=== PATIENT | male | born 1940 | race Caucasian/White ===

== ENCOUNTER 2019-10-30 12:36 | Emergency (ER) | payer OTHER, SELFPAY ==
[2019-10-30 12:46] VITALS: BP 154/97; RESP 18; TEMP 36.6; O2SAT 98; BMI 31.7
[2019-10-30 14:44] VITALS: BP 159/84
--- NOTE | 2019-10-30 14:45 | PC.NURSE ---
Patient reports that today he was setting watching TV when he checked is blood pressure. Patient states that his blood pressure was 94/64 at home.
[2019-10-30 14:47] VITALS: BP 153/101; PULSE 87; RESP 18; O2SAT 95
[2019-10-30 14:48] VITALS: BP 152/92; PULSE 90; O2SAT 93
--- NOTE | 2019-10-30 15:07 | XR_ITS ---
WS: [id number] Portable AP upright chest, 10/30/2019 Clinical Data: cough Comparison: Portable chest, 01/03/2018. Findings: No nodules, masses or effusions are seen. The heart is normal. The pulmonary vascularity is not increased. No pneumonia or pneumothorax is seen. There is minimal bibasilar basilar atelectasis unchanged. The aortic arch and descending aorta show mild tortuosity XR/XR chest 1V portable [id number] Impression: Atherosclerosis.
--- NOTE | 2019-10-30 15:07 | ECG_ITS ---
Measurements Intervals [place] Rate: 80 P: [place]: 0 QRS: 59 QRSD: 114 T: 42 QT: 372 QTc: 430 ATRIAL FIBRILLATION MODERATE INTRAVENTRICULAR CONDUCTION DELAY [110+ ms QRS DURATION] ABNORMAL RHYTHM ECG Compared to ECG 01/05/2018 05:55:14 Intraventricular conduction delay now present Myocardial infarct finding no longer present Electronically Signed On 10-30-2019 19:28:30 SERVICE [employer]ORTER by Jose Jc M.D. [email or web address]
--- NOTE | 2019-10-30 15:26 | W.ED.GENADLT ---
HPI - General Adult General: Chief complaint: General Medical Stated complaint: low bp Time Seen by Provider: 10/30/19 14:55 Source: patient Mode of arrival: ambulatory Limitations: no limitations History of Present Illness: HPI narrative: Patient comes in today for complaints of low blood pressure. Patient reports 2 episodes of where his blood pressure dropped very low once last night and then 1 time this morning. Patient states he got dizzy last night and felt like passing out. Patient denies any falls or injury. Patient appears well and blood pressure has returned to normal. Skin is warm and dry. Patient appears in no pain. Patient denies any chest pain. Review of Systems General: Reports: 10 or more systems reviewed and unremarkable except in HPI and below Neuro: Reports: other (lightheadedness) PFSH ED PFSH: Statuses (acute, chronic, etc) shown below reflect problem list status as previously entered and may not be historically accurate Social History Smoking and tobacco status: former smoker Physical Exam Const: COMMON NORMALS: no apparent distress and oriented x3 GENERAL APPEARANCE: cooperative HENMT: COMMON NORMALS: normocephalic, external ears normal, EAC's normal, TM's normal bilaterally and external nose normal HEAD & SCALP: normal to inspection and normocephalic FACE & SINUS: normal facial exam NOSE: external nose normal GENERAL EAR: hearing not grossly impaired EXTERNAL EAR: Yes external ears normal EXTERNAL AUDITORY CANAL: EAC's normal TYMPANIC MEMBRANE: TM's normal bilaterally MOUTH: oral and palatal mucosa normal THROAT: posterior oropharynx normal Eye: COMMON NORMALS: PERRL and EOMs intact bilaterally PUPIL: Yes PERRL Neck/C-Spine: COMMON NORMALS: full ROM and no lymphadenopathy Lymph: LYMPHATIC: no lymphedema noted Chest: COMMONS NORMALS: inspection of chest normal and palpation of chest normal Resp: COMMON NORMALS: normal respiratory effort AUSCULTATION: wheezes expiratory wheezes Cardio: COMMON NORMALS: regular rate and regular rhythm RATE: regular rate RHYTHM: regular rhythm GI: COMMON NORMALS: normal to inspection, nondistended, normoactive bowel sounds and non-tender : COMMON NORMALS: Yes no CVA tenderness BLADDER/KIDNEY EXAM: Yes no CVA tenderness Back/Pelvis: COMMON NORMALS: no CVA tenderness and thoracic and lumbar spine normal to inspection Extremity: COMMON NORMALS: normal to inspection GENERAL: No edema Neuro: COMMON NORMALS: oriented x3, moves all extremities and no focal motor deficits Psych: COMMON NORMALS: mental status grossly normal and cooperative Skin: COMMON NORMALS: no rashes or lesions noted GENERAL SKIN EXAM: no rashes or lesions noted Course Vital Signs: Vital signs: Vital Signs Temperature 98 F 10/30/19 12:46 Pulse Rate 90 10/30/19 14:48 Respiratory Rate 18 10/30/19 14:47 Blood Pressure 152/92 10/30/19 14:48 Pulse Oximetry 93 10/30/19 14:48 MDM - General Adult MDM Narrative: Medical decision making narrative: Patient comes in today for concerns of lightheadedness. Exam was fairly normal except for some expiratory wheezes. Patient reported that he had been coughing for about 2 to 3 weeks. Vital signs were stable. Orthostatic blood pressures were normal. Differential diagnosis includes ACS, pneumonia, vasovagal syndrome, dehydration, anemia. Laboratory values were insignificant. Chest x-ray was normal. EKG was atrial fib which is normal for patient. Cardiac enzymes normal. Reviewed exam with patient suspect a vasovagal response may be due to coughing. Patient will be treated for doxycycline for his persistent cough and 3 days of steroid. Patient reported understanding agreed to plan. I did offered a CT scan of the head with the patient but patient refused at this time wanting to go home, and stated he would follow-up with his primary care. Lab Data: Labs: Lab Results 10/30/19 10/30/19 10/30/19 Range/Units 15:28 15:28 15:28 WBC 6.5 (4.0-10.0) 10^3/ uL RBC 4.67 (4.1-5.3) 10^6/u L Hgb 12.7 (11.7-16.6) g/dL Hct 40.7 L (42.0-52.0) % MCV 87.2 (80-94) fL MCH 27.2 L (28.0-34.0) pg MCHC 31.2 (30.0-36.0) g/dL RDW 14.6 (12.1-15.1) % Plt Count 150 (130-400) 10^3/c mm MPV 11.2 H (7.4-10.4) fL Neut % (Auto) 50.1 % Lymph % (Auto) 34.4 % [place] % (Auto) 10.9 % Eos % (Auto) 4.0 % Baso % (Auto) 0.3 % Neut # (Auto) 3.3 (1.8-7.7) 10^3/u L Lymph # (Auto) 2.3 (0.8-4.8) 10^3/u L [place] # (Auto) 0.7 (0.2-0.9) 10^3/u L Eos # (Auto) 0.3 (0.0-0.8) 10^3/u L Baso # (Auto) 0.0 (0.0-0.1) 10^3/u L Nucleated RBC % (a uto) 0 % Nucleated RBCs # 0.0 /100WBC Sodium 138 (136-145) mmol/L Potassium 4.3 (3.5-5.1) mmol/L Chloride 101 (98-107) mmol/L Carbon Dioxide 27 (22-29) mmol/L Anion Gap 14.3 (5-19) BUN 11 (8-23) mg/dL Creatinine 1.0 (0.7-1.2) mg/dL Glucose 114 H (74-106) mg/dL Calcium 10.1 (8.8-10.2) mg/Dl Total Bilirubin 0.8 (0.15-1.2) mg/dL AST 20 (0-40) U/L ALT 13 (0-41) U/L Alkaline Phosphata se 64 (40-130) IU/L Troponin T Baselin e 10 (0-15) ng/mL NT-Pro-B Natriuret Pep 184 (0-450) pg/mL Total Protein 7.1 (6.6-8.7) g/dL Albumin 4.2 (3.5-5.2) g/dL Globulin 2.9 (1.3-4.6) g/dL Discharge Plan Discharge Patient Disposition: Home, Self-Care Clinical Impression: Vaso-vagal reaction Acute bronchitis Qualifiers: Bronchitis organism: unspecified organism Qualified Code(s): J20.9 - Acute bronchitis, unspecified Condition: Stable Prescriptions: New doxycycline hyclate 100 mg tablet 100 mg PO BID 10 Days Qty: 20 RF: 0 prednisone 20 mg tablet 20 mg PO DAILY 3 Days Qty: 3 RF: 0 Discharge Orders: Discharge Order (Routine); Ordered 10/30/19 Ordered By: Andres Resendiz Discharge Diet: Usual diet Discharge Activity: Resume usual activity Patient Instructions: Syncope (ED) Activity Restrictions/Additional Instructions: Drink plenty of water Change position slowly Follow-up with primary care in three days REturn to ER for chest pain or increased shortness of breath Coding Level of Care Code ED [place] [employer] for Josh Pinto
[2019-10-30 15:34] LABS: Basophils % 0.3 %; Eosinophils # 0.3 10^3/uL (0.0-0.8); Hematocrit 40.7 % (42.0-52.0); Hemoglobin 12.7 g/dL (11.7-16.6); Lymphocytes # 2.3 10^3/uL (0.8-4.8); Lymphocytes % 34.4 %; Mean Corpuscular HGB Conc 31.2 g/dL (30.0-36.0); Mean Corpuscular Hemoglobin 27.2 pg (28.0-34.0); Mean Corpuscular Volume 87.2 fL (80-94); Mean Platelet Volume 11.2 fL (7.4-10.4); Monocytes # 0.7 10^3/uL (0.2-0.9); Monocytes % 10.9 %; Neutrophils # 3.3 10^3/uL (1.8-7.7); Neutrophils % 50.1 %; Nucleated Red Blood Cells % 0 %; Platelet Count 150 10^3/cmm (130-400); Red Blood Count 4.67 10^6/uL (4.1-5.3); Red Cell Distribution Width 14.6 % (12.1-15.1); White Blood Count 6.5 10^3/uL (4.0-10.0)
[2019-10-30 15:51] LABS: Troponin(5th) Baseline 10 ng/mL (0-15)
[2019-10-30 15:59] LABS: Alanine Aminotransferase 13 U/L (0-41); Albumin Level 4.2 g/dL (3.5-5.2); Alkaline Phosphatase 64 IU/L (40-130); Anion Gap 14.3 (5-19); Aspartate Amino Transferase 20 U/L (0-40); Blood Urea Nitrogen 11 mg/dL (8-23); Calcium 10.1 mg/Dl (8.8-10.2); Carbon Dioxide 27 mmol/L (22-29); Chloride 101 mmol/L (98-107); Globulin 2.9 g/dL (1.3-4.6); Glucose 114 mg/dL (74-106); NT Pro B Type Natriuretic Pept 184 pg/mL (0-450); Potassium 4.3 mmol/L (3.5-5.1); Sodium 138 mmol/L (136-145); Total Bilirubin 0.8 mg/dL (0.15-1.2); Total Protein 7.1 g/dL (6.6-8.7)
[2019-10-30 17:05] VITALS: BP 138/100; PULSE 97; RESP 18; O2SAT 95
== END 2019-10-30 17:06 | disposition home or self-care (01) ==
PROVIDERS: Emergency Provider Nurse Practitioner Family
DX: R55 Syncope and collapse (principal); J20.9 Acute bronchitis, unspecified; Z87.891 Personal history of nicotine dependence; I48.91 Unspecified atrial fibrillation
CPT/HCPCS: 36415; 71045; 80053; 83880; 84484; 85025; 93005; 99281

== ENCOUNTER 2020-05-08 10:15 | Emergency (ER) | payer OTHER, MEDICARE, SELFPAY ==
[2020-05-08 10:33] VITALS: BP 148/87; PULSE 100; RESP 20; TEMP 36.6; O2SAT 95; BMI 31.2
[2020-05-08 12:05] VITALS: RESP 18
--- NOTE | 2020-05-08 12:22 | ED_ITS ---
HPI - Extremity Problem General: Chief complaint: Extremity Problem,Nontraumatic Stated complaint: LUMP ON R LEG Time Seen by Provider: 05/08/20 11:53 Source: patient Mode of arrival: ambulatory Limitations: no limitations History of Present Illness: HPI Narrative: Patient is a 79-year-old male who presents to ED today at the request of the [facility] for complaints of a lump to his ri ght lower extremity. [facility]. Patient tells me he has noticed the lump over the past few days. Seems to be mildly tender with palpation. He has not noticed any redness, swelling, pain throughout the extremity. He has no calf pain. MD Complaint: other ( lump to R LE) Onset (ago): day(s) Location: right and lower extremity Radiation: none Relieving factors: nothing Exacerbating factors: nothing Associated symptoms: Reports no associated symptoms; Deny chest pain or fever(s) Review of Systems Const: Denies: fever(s), chills or body aches Card: Denies: chest pain Resp: Denies: dyspnea or chest congestion Musc: Reports: other (mild pain directly over lump ); Denies: neck pain, back pain, extremity pain, extremity swelling, joint pain or joint swelling Neuro: Denies: numbness in extremities, weakness in extremities or sensory changes [facility] ED PFSH: Social History Smoking and tobacco status: former smoker Physical Exam Const: COMMON NORMALS: no acute distress, patient oriented x3, no limitations and alert Resp: COMMON NORMALS: normal respiratory effort and clear to auscultation bilaterally AUSCULTATION: clear to auscultation bilaterally Cardio: COMMON NORMALS: regular rate and regular rhythm RATE: regular rate RHYTHM: regular rhythm Extremity: COMMON NORMALS: normal to inspection, full ROM, capillary refill normal, no calf tenderness and no pedal edema GENERAL: Yes normal exam except as noted OTHER: Patient's bilateral lower extremities appear normal apart from a small 2 cm area to the medial aspect of patient's right tibia. The area is not erythematous or warm to the touch. It does not appear cord like. It is not freely mobile. There is no fluctuance or drainage to the area. Neuro: COMMON NORMALS: patient oriented x3, moves all extremities, no focal motor deficits and gait normal SENSORIUM/ORIENTATION: Yes alert Skin: NARRATIVE SKIN EXAM: see extremity assessment Course Vital Signs: Vital signs: Vital Signs Temperature 97.9 F 05/08/20 10:33 Pulse Rate 83 05/08/20 13:27 Respiratory Rate 20 H 05/08/20 13:27 Blood Pressure 142/88 05/08/20 13:27 Pulse Oximetry 97 05/08/20 13:27 MDM - Extremity (Nontraumatic) MDM Narrative: Medical decision making narrative: Ultrasound showing no DVT. Questionable sebaceous cyst versus superficial thrombophlebitis. Clinically this does not appear as a superficial thrombus and most likely this is some type of cystic lesion. [facility] for [facility]. Imaging Data^: US venous R LE: Radiologist's impression: [place] [address] Ultrasound Report Signed Patient: Bjorn LongUnit #: [id number] : 1940cct#:[id number] Age/Sex: 79 / MADM Date: 05/08/20 Loc: ERRoom/Bed: Attending Dr: Ordering Provider/Ordering MD: Crys Maldonado Date of Service: 05/08/20 Procedure(s): [place] [address] Accession Number(s): [id number] Report Number: [id number] Bjorn Long Age: 79 Gender: M : 1940 Exam Date: 05/08/2020 12:33 Ordering Phys: Crys Maldonado Technologist: Adeline Holman Exam Location: [facility] [place] Indication: RLE pain, swelling HISTORY: RLE pain, swelling PROCEDURES: On the right side, the common femoral, superficial femoral, profunda femoral, popliteal, posterior tibial, greater saphenous veins and the peroneal trunk were identified and interrogated in the standard fashion. These veins were found to be easily compressible with spontaneous blood flow. FINDINGS: Normal 2-D Doppler and augmentation and compressibility throughout the lower extremity venous structures. Additional imaging through the proximal calf veins also reveals no thrombus. Limited evaluation of the greater saphenous vein is patent with no thrombus. Palpable area anterior lower extremity near ankle maybe a small sebaceous cyst or thrombosed superficial vein. CONCLUSIONS No DVT right lower extremity. Palpable nodule anterior lower tibia maybe a sebaceous cyst or thrombosed superficial vein. Dr. Yen Cox DO (Electronically Signed) Final Date: 08 May 2020 15:00 S Discharge Plan Discharge Patient Disposition: Home, Self-Care Clinical Impression: Localized swelling, mass and lump, right lower limb Condition: Stable Discharge Orders: Discharge Order (Routine); Ordered 05/08/20 Ordered By: Crys Maldonado Activity Restrictions/Additional Instructions: [facility]2 [facility] for further evaluation. Your ultrasound was negative for a blood clot/DVT today. Discharge Date/Time: 05/08/20 13:27 Coding Level of Care Code ED Compliance Officer for Josh Pinto
[2020-05-08 13:27] VITALS: BP 142/88; PULSE 83; RESP 20; O2SAT 97
== END 2020-05-08 13:27 | disposition home or self-care (01) ==
PROVIDERS: Emergency Provider Physician Assistant
DX: R22.41 Localized swelling, mass and lump, right lower limb (principal); M79.89 Other specified soft tissue disorders; Z87.891 Personal history of nicotine dependence
CPT/HCPCS: 12345; 93971; 99282

== ENCOUNTER 2020-05-16 09:45 | Outpatient (RCR) | payer OTHER, MEDICARE, SELFPAY | END 2020-05-17 23:59 | disposition home or self-care (01) | LOC: PULRHB 09:45 | PROVIDERS: PCP Internal Medicine Pulmonary Disease; Visit Provider Internal Medicine Pulmonary Disease | DX: J44.9 Chronic obstructive pulmonary disease, unspecified (principal) | CPT/HCPCS: G0238 ==

== ENCOUNTER 2020-05-18 06:00 | Outpatient (RCR) | payer OTHER, MEDICARE, SELFPAY | END 2020-06-17 23:59 | disposition home or self-care (01) | LOC: PULRHB 06:00 | PROVIDERS: PCP Internal Medicine Pulmonary Disease; Visit Provider Internal Medicine Pulmonary Disease | DX: J44.9 Chronic obstructive pulmonary disease, unspecified (principal) | CPT/HCPCS: G0424 ==

== ENCOUNTER 2020-06-12 06:34 | Day surgery (SDC) | payer OTHER, SELFPAY ==
[2020-06-10 13:10] VITALS: BMI 30.2
--- NOTE | 2020-06-10 13:13 | ECG_ITS ---
[facility] Test Date: 2020-06-10 Pat Name: Bjorn Long Department: Room: Gender: Male Dispatcher [place]: : 1940 Requested By: Henry Gudino Order Number: [id number] Billie MD: Sj Mcclain M.D. Measurements Intervals [place] Rate: 86 P: MT: -1 QRS: 67 QRSD: 111 T: 44 QT: 357 QTc: 428 Interpretive Statements ATRIAL FIBRILLATION MODERATE INTRAVENTRICULAR CONDUCTION DELAY [110+ ms QRS DURATION] ABNORMAL RHYTHM ECG Compared to ECG 10/30/2019 15:26:13 No significant changes Electronically Signed On 06-11-2020 17:28:52 CDT by Sj Mcclain M.D. [email or web address]
[2020-06-12 06:44] VITALS: BP 150/103; PULSE 85; RESP 18; TEMP 36.4; O2SAT 97
[2020-06-12] MEDS: sodium chloride 0.9% 1,000 ML 30 ML IV (06:56)
--- NOTE | 2020-06-12 07:09 | W.PM.OPSUD ---
Surgery/Procedure H&P Update DATE OF PROCEDURE: June 12, 2020 DATE H&P PERFORMED: 05/30/20 H&P UPDATE INFORMATION: I have reviewed H&P completed within last 30 days, I have examined patient prior to procedure and No changes to prior documentation PREOP DIAGNOSIS: Subcutaneous mass right leg PLANNED PROCEDURE: Operation Date: 06/12/20 08:10 Proposed Procedures p Excision subcutaneous mass right leg 80946 R22.41(Right) - Jericho Boyd MD
--- NOTE | 2020-06-12 07:16 | ANES.PREANE2 ---
Pre-Anesthetic Assessment Pre-Anesthetic Assessment: Height/Weight: Height 1.91 m Weight 109.769 kg Temp Pulse Resp BP Pulse Ox 97.5 F L 85 18 150/103 97 06/12/20 06:44 06/12/20 06:44 06/12/20 06:44 06/12/20 06:44 06/12/20 06:44 Preop Diagnosis: Subcutaneous mass right leg Proposed Procedure: Operation Date: 06/12/20 08:10 Proposed Procedures p Excision subcutaneous mass right leg 41327 R22.41(Right) - Jericho Boyd MD Familial anesthetic complications: None Was Beta Deanne taken within 24 hours: Yes Last intake: Intake Last Liquid Date 06/11/20 Last Liquid Time 23:00 Last Solid Date 06/11/20 Last Solid Time 19:00 Social: Social History: No alcohol and No tobacco Exam: Pre-Anes Outpt Exam: alert, oriented x 3, clear to auscultation bilaterally and regular rate & rhythm Additional Exam Findings (including area of procedure): diminished breath sounds Airway: Cervical ROM: WNL MP: 2 Dentition: False Pulmonary: Pulmonary: COPD CV/HEM: CV/HEM: Afib and HTN Comments: last took rivaroxaban wednesday GI: GI: GERD Musc/skel: Musc/skel: None reported Neuropsych: 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)) Anesthetic Plan: ASA status: 3 Anesthesia: MAC Risk of > 500 ml blood loss (7ml/kg in children): No Meds/Allergies Current Medications: Current Medications Generic Name Dose Route Start Last Admin Trade Name Freq PRN Reason Stop Dose Admin Sodium Chloride 1,000 mls @ 30 ml s/hr 06/12/20 06:45 06/12/20 06:56 Sodium Chloride 0.9% IV 06/13/20 06:44 30 mls/hr .Q24H BANDAR Administration PFSH Anesthesia PFSH: Medical History (Updated 05/31/20 @ 12:39 by Jericho Boyd MD) Atrial fibrillation COPD (chronic obstructive pulmonary disease) H/O malignant neoplasm of skin Hypertension Surgical History H/O circumcision H/O colonoscopy 5 yrs ago H/O esophagogastroduodenoscopy 1993 Family History Other CAD (coronary artery disease) Diabetes Denies family history of Anesthesia complication Bleeding disorder Cancer Social History Smoking and tobacco status: former smoker Alcohol intake: never Household members: spouse Marital status: Current occupational status: retired History of recent travel: No Data Anesthesia Cardiac Studies: No Data to Display
[2020-06-12] MEDS: lidocaine 1% INJ 20 mL SUBCUT (08:51)
[2020-06-12 09:17] VITALS: BP 110/69; PULSE 71; RESP 16; TEMP 36.8; O2SAT 93
[2020-06-12 09:40] VITALS: BP 123/85; PULSE 83; RESP 18; TEMP 36.6; O2SAT 94
--- NOTE | 2020-06-12 11:48 | PM.OP ---
Operative Report Date of procedure: June 12, 2020 Pre-op Diagnosis: Subcutaneous mass right leg Post-op diagnosis: same Procedure Done: Excision of subcutaneous mass right leg Pathology: Subcutaneous mass right leg Surgeon: Jericho Boyd Anesthesia: MAC and General Condition: stable Disposition: same day Procedure: The patient was taken to the operating room and placed under MAC after IV antibiotic had been administered. 1% lidocaine with 0.5% Marcaine was infiltrated around the palpable mass on the medial aspect of the right leg. Using 15 blade a 3 cm incision was made longitudinally, subcutaneous tissue was divided and the subcutaneous mass was dissected free from the surrounding subcutaneous tissue and sent to pathology. It appeared that the mass is most likely a thrombosed greater saphenous vein and the remaining portion of the vein was suture ligated with 3-0 Vicryl suture. The subcutaneous tissues approximated using interrupted 3-0 Vicryl suture and skin was closed using running subcuticular 4-0 Monocryl suture and Dermabond. Pressure dressings were applied. Patient was transferred to same-day surgery in stable condition.
== END 2020-06-12 10:06 | disposition home or self-care (01) ==
PROVIDERS: PCP Emergency Medicine Emergency Medical Services; Visit Provider Surgery
PROC: (CPT 27632; principal; 2020-06-12 08:10)
DX: D17.23 Benign lipomatous neoplasm of skin and subcutaneous tissue of right leg (principal); J44.9 Chronic obstructive pulmonary disease, unspecified; I10 Essential (primary) hypertension; I48.91 Unspecified atrial fibrillation; K21.9 Gastro-esophageal reflux disease without esophagitis; Z86.73 Personal history of transient ischemic attack (TIA), and cerebral infarction without residual deficits; Z79.01 Long term (current) use of anticoagulants; Z87.891 Personal history of nicotine dependence
CPT/HCPCS: 27632; 12345; 88309; 93005; 96365; J0690; J2704; J3010; J3490; J7030

== ENCOUNTER 2020-06-18 06:00 | Outpatient (RCR) | payer OTHER, SELFPAY | END 2020-07-17 23:59 | disposition home or self-care (01) | LOC: PULRHB 06:00 | PROVIDERS: PCP Emergency Medicine Emergency Medical Services; Visit Provider Internal Medicine Pulmonary Disease | DX: J44.9 Chronic obstructive pulmonary disease, unspecified (principal) | CPT/HCPCS: G0424 ==

== ENCOUNTER 2020-07-04 04:38 | Inpatient (IN) | payer OTHER, MEDICARE, SELFPAY ==
[2020-07-04] VITALS (14 sets, daily range): BP systolic 92–147; BP diastolic 49–76; PULSE 66–107; RESP 16–26; TEMP 36.6–39.2; O2SAT 91–98; BMI 30.6
--- NOTE | 2020-07-04 04:42 | XRR_ITS ---
PROCEDURE INFORMATION: Exam: XR Chest, 1 View Exam date and time: 07/04/2020 5:10 AM Age: 79 years old Clinical indication: Cough TECHNIQUE: Imaging protocol: XR of the chest Views: 1 view. COMPARISON: CR XR chest 1V portable [id number] 10/30/2019 3:35 PM FINDINGS: Lungs: Scattered granulomatous calcifications. Areas of pleuroparenchymal scarring. Mildly accentuated lingular opacity which could reflect small infiltrate or atelectasis. Pleural space: Unremarkable. No pleural effusion. No pneumothorax. Heart/Mediastinum: Stable heart size. Vasculature: Tortuous thoracic aorta. Bones/joints: Unremarkable. XR/XR chest 1V portable [id number] IMPRESSION: Lingular atelectasis or small infiltrate is somewhat accentuated since the prior chest.
--- NOTE | 2020-07-04 04:42 | XRR_ITS ---
PROCEDURE INFORMATION: Exam: XR Right Tibia and Fibula Exam date and time: 07/04/2020 5:13 AM Age: 79 years old Clinical indication: Cellulitis; Lower leg; Right; Prior surgery; Surgery date: <1 month; Surgery type: Leg ret swollen, open wound, cyst removed from leg 3 weeks ago TECHNIQUE: Imaging protocol: XR Right tibia and fibula. Views: 2 views. COMPARISON: No relevant prior studies available. FINDINGS: Bones/joints: Normal. Soft tissues: Soft tissue vascular calcification. Fullness or edema of the soft tissues cranial to the ankle joint medially. XR/XR tibia fibula RT 2V [id number] IMPRESSION: No acute osseous findings.
--- NOTE | 2020-07-04 04:44 | ED_ITS ---
Documented by User: Chloe Messer MD 07/04/20 05:02 HPI - Skin/Abscess/Foreign Bdy General: Chief complaint: Extremity Injury, Lower Stated complaint: right leg pain Time Seen by Provider: 07/04/20 04:42 Source: patient and EMS Mode of arrival: EMS Limitations: no limitations History of Present Illness: HPI narrative: 79-year-old male who was seen 1 month ago for an abscess or cyst to his right lower leg that Dr. Boyd and drained. Patient was released from Dr. Boyd. He states that over the last 24 hours he started having redness along with pain and fever. Patient states he has a chronic cough. He denies any acute shortness of breath. He denies any worsening improving factors. Associated symptoms: Reports fever(s); Deny nausea or vomiting Review of Systems Const: Reports: fever(s) Eyes: Denies: blurry vision or eye discomfort ENMT: Denies: throat pain or dental pain Card: Denies: chest pain Resp: Denies: dyspnea GI: Denies: abdominal pain, nausea, vomiting or diarrhea : Denies: dysuria Musc: Denies: neck pain or back pain Skin/Breast: Reports: rash and erythema Neuro: Denies: headache(s) Psych: Denies: depression All/Lymph: Denies: easy bruising All/Imm: Denies: urticaria PFSH ED PFSH: Medical History Atrial fibrillation COPD (chronic obstructive pulmonary disease) H/O malignant neoplasm of skin Hypertension Surgical History H/O circumcision H/O colonoscopy 5 yrs ago H/O esophagogastroduodenoscopy 1993 Hx of excision of mass (06/12/20) Right leg Family History Other CAD (coronary artery disease) Diabetes Denies family history of Anesthesia complication Bleeding disorder Cancer Social History Smoking and tobacco status: former smoker Alcohol intake: never Household members: spouse Marital status: Current occupational status: retired History of recent travel: No Physical Exam Const: COMMON NORMALS: no acute distress, patient oriented x3 and healthy appearing HENMT: COMMON NORMALS: normocephalic and atraumatic HEAD & SCALP: normocephalic and atraumatic Eye: COMMON NORMALS: Equal, round and reactive pupils present and EOMs intact bilaterally PUPIL: Yes Equal, round and reactive pupils present Neck/C-Spine: COMMON NORMALS: full ROM and supple Chest: COMMONS NORMALS: normal inspection of the chest and normal palpation of entire chest wall Resp: COMMON NORMALS: normal respiratory effort, No retractions, No use of accessory muscles and clear to auscultation bilaterally AUSCULTATION: clear to auscultation bilaterally Cardio: COMMON NORMALS: regular rate, regular rhythm and No murmurs present (Cardio) RATE: regular rate RHYTHM: regular rhythm GI: COMMON NORMALS: Normal to inspection, nondistended, normoactive bowel sounds present, Soft to palpation, non-tender and no masses PALPATION: Yes Soft to palpation Extremity: COMMON NORMALS: normal to inspection and full ROM Neuro: COMMON NORMALS: patient oriented x3, moves all extremities and no focal motor deficits Psych: COMMON NORMALS: mental status grossly normal, Normal thought process present and cooperative THOUGHT PROCESS: Normal thought process present Skin: NARRATIVE SKIN EXAM: Cellulitis to right lower leg with erythema and warmth to touch. Slight drainage from old cyst. Course Vital Signs: Vital signs: Vital Signs Temperature 97.9 F 07/04/20 04:39 Pulse Rate 87 07/04/20 05:44 Respiratory Rate 16 07/04/20 05:44 Blood Pressure 108/66 07/04/20 05:44 Pulse Oximetry 98 07/04/20 05:44 MDM - Skin/Abscess/Foreign Bdy Lab Data: Labs: Lab Results 07/04/20 07/04/20 07/04/20 Range/Units 05:00 05:00 05:00 WBC 14.9 H (4.0-10.0) 10^3/ uL RBC 4.73 (4.1-5.3) 10^6/u L Hgb 13.9 (11.7-16.6) g/dL Hct 42.5 (42.0-52.0) % MCV 89.9 (80-94) fL MCH 29.4 (28.0-34.0) pg MCHC 32.7 (30.0-36.0) g/dL RDW 14.0 (12.1-15.1) % Plt Count 131 (130-400) 10^3/c mm MPV 11.9 H (7.4-10.4) fL Neut % (Auto) 78.2 % Lymph % (Auto) 8.7 % Evans % (Auto) 11.8 % Eos % (Auto) 0.7 % Baso % (Auto) 0.2 % Neut # (Auto) 11.65 H (1.8-7.7) 10^3/u L Lymph # (Auto) 1.3 (0.8-4.8) 10^3/u L Evans # (Auto) 1.8 H (0.2-0.9) 10^3/u L Eos # (Auto) 0.1 (0.0-0.8) 10^3/u L Baso # (Auto) 0.0 (0.0-0.1) 10^3/u L Nucleated RBC % (a uto) 0 % Nucleated RBCs # 0.0 /100WBC Sodium 135 L (136-145) mmol/L Potassium 4.2 (3.5-5.1) mmol/L Chloride 101 (98-107) mmol/L Carbon Dioxide 23 (22-29) mmol/L Anion Gap 15.2 (5-19) BUN 13 (8-23) mg/dL Creatinine 1.1 (0.7-1.2) mg/dL GFR Calculation Not Reportable Glucose 114 (65-115) mg/dL Calculated Osmolal ity 281 L (285-295) mOsm/k g Lactate 1.2 (0.5-2.2) mmol/L Calcium 9.4 (8.5-10.5) mg/dL Total Bilirubin 2.1 H (0.15-1.2) mg/dL AST 19 (0-40) U/L ALT 12 (0-41) U/L Alkaline Phosphata se 53 (40-130) IU/L NT-Pro-B Natriuret Pep 613 H (0-450) pg/mL Total Protein 7.3 (6.6-8.7) g/dL Albumin 4.0 (3.5-5.2) g/dL Globulin 3.3 (1.3-4.6) g/dL SARS-CoV-2 Ag (Rap id) (Negative) 07/04/20 Range/Units 05:41 WBC (4.0-10.0) 10^3/ uL RBC (4.1-5.3) 10^6/u L Hgb (11.7-16.6) g/dL Hct (42.0-52.0) % MCV (80-94) fL MCH (28.0-34.0) pg MCHC (30.0-36.0) g/dL RDW (12.1-15.1) % Plt Count (130-400) 10^3/c mm MPV (7.4-10.4) fL Neut % (Auto) % Lymph % (Auto) % Evans % (Auto) % Eos % (Auto) % Baso % (Auto) % Neut # (Auto) (1.8-7.7) 10^3/u L Lymph # (Auto) (0.8-4.8) 10^3/u L Evans # (Auto) (0.2-0.9) 10^3/u L Eos # (Auto) (0.0-0.8) 10^3/u L Baso # (Auto) (0.0-0.1) 10^3/u L Nucleated RBC % (a uto) % Nucleated RBCs # /100WBC Sodium (136-145) mmol/L Potassium (3.5-5.1) mmol/L Chloride (98-107) mmol/L Carbon Dioxide (22-29) mmol/L Anion Gap (5-19) BUN (8-23) mg/dL Creatinine (0.7-1.2) mg/dL GFR Calculation Glucose (65-115) mg/dL Calculated Osmolal ity (285-295) mOsm/k g Lactate (0.5-2.2) mmol/L Calcium (8.5-10.5) mg/dL Total Bilirubin (0.15-1.2) mg/dL AST (0-40) U/L ALT (0-41) U/L Alkaline Phosphata se (40-130) IU/L NT-Pro-B Natriuret Pep (0-450) pg/mL Total Protein (6.6-8.7) g/dL Albumin (3.5-5.2) g/dL Globulin (1.3-4.6) g/dL SARS-CoV-2 Ag (Rap id) Negative (Negative) Discharge Plan Discharge Prescriptions: No Action albuterol sulfate 90 mcg/actuation HFA aerosol inhaler 2 puff INHALATION Q6H PRN (Reason: Shortness Of Breath) RF: 0 albuterol sulfate 2.5 mg /3 mL (0.083 %) solution for nebulization 2.5 mg INHALATION Q6H RF: 0 rivaroxaban 20 mg tablet 20 mg PO DAILY RF: 0 Hold Instructions: Resume on 06/15/20. pravastatin 40 mg tablet 40 mg PO DAILY RF: 0 omeprazole 20 mg capsule,delayed release(DR/EC) 20 mg PO DAILY RF: 0 budesonide-formoterol [Symbicort] 160-4.5 mcg/actuation HFA aerosol inhaler 2 puff INHALATION BID RF: 0 carvedilol 25 mg tablet 25 mg PO BID RF: 0 Coding Level of Care Code ED Plate Molder for Chg Fwd Exam Comprehensive Documented by User: Bárbara Teague MD 07/04/20 07:30 HPI - Skin/Abscess/Foreign Bdy General: Chief complaint: Extremity Injury, Lower Stated complaint: right leg pain Time Seen by Provider: 07/04/20 04:42 [facility] ED PFSH: Medical History Atrial fibrillation COPD (chronic obstructive pulmonary disease) H/O malignant neoplasm of skin Hypertension Surgical History H/O circumcision H/O colonoscopy 5 yrs ago H/O esophagogastroduodenoscopy 1993 Hx of excision of mass (06/12/20) Right leg Family History Other CAD (coronary artery disease) Diabetes Denies family history of Anesthesia complication Bleeding disorder Cancer Social History Smoking and tobacco status: former smoker Alcohol intake: never Household members: spouse Marital status: Current occupational status: retired History of recent travel: No Course ED course: Assumed care of this patient from Dr. Messer at shift change. On reevaluation the patient has a hot, hot tender, red area on his anterior right lower leg. He also tells me that he got up at 2 in the morning to go to the bathroom and could barely walk because he felt so weak. He thinks he may have passed out a couple of times. He did not really want to stay in the hospital but when we discussed that he was sick enough to be passing out he did agree to stay. He had been given vancomycin already in the ER. X-ray did not show anything. Bedside ultrasound shows some scattered areas of fluid but not a large discrete collection. He will be admitted to the hospitalist for further treatment and management. Vital Signs: Vital signs: Vital Signs Temperature 97.9 F 07/04/20 04:39 Pulse Rate 87 07/04/20 05:44 Respiratory Rate 16 07/04/20 05:44 Blood Pressure 108/66 07/04/20 05:44 Pulse Oximetry 98 07/04/20 05:44 MDM - Skin/Abscess/Foreign Bdy Lab Data: Labs: Lab Results 07/04/20 07/04/20 07/04/20 Range/Units 05:00 05:00 05:00 WBC 14.9 H (4.0-10.0) 10^3/ uL RBC 4.73 (4.1-5.3) 10^6/u L Hgb 13.9 (11.7-16.6) g/dL Hct 42.5 (42.0-52.0) % MCV 89.9 (80-94) fL MCH 29.4 (28.0-34.0) pg MCHC 32.7 (30.0-36.0) g/dL RDW 14.0 (12.1-15.1) % Plt Count 131 (130-400) 10^3/c mm MPV 11.9 H (7.4-10.4) fL Neut % (Auto) 78.2 % Lymph % (Auto) 8.7 % Evans % (Auto) 11.8 % Eos % (Auto) 0.7 % Baso % (Auto) 0.2 % Neut # (Auto) 11.65 H (1.8-7.7) 10^3/u L Lymph # (Auto) 1.3 (0.8-4.8) 10^3/u L Evans # (Auto) 1.8 H (0.2-0.9) 10^3/u L Eos # (Auto) 0.1 (0.0-0.8) 10^3/u L Baso # (Auto) 0.0 (0.0-0.1) 10^3/u L Nucleated RBC % (a uto) 0 % Nucleated RBCs # 0.0 /100WBC Sodium 135 L (136-145) mmol/L Potassium 4.2 (3.5-5.1) mmol/L Chloride 101 (98-107) mmol/L Carbon Dioxide 23 (22-29) mmol/L Anion Gap 15.2 (5-19) BUN 13 (8-23) mg/dL Creatinine 1.1 (0.7-1.2) mg/dL GFR Calculation Not Reportable Glucose 114 (65-115) mg/dL Calculated Osmolal ity 281 L (285-295) mOsm/k g Lactate 1.2 (0.5-2.2) mmol/L Calcium 9.4 (8.5-10.5) mg/dL Total Bilirubin 2.1 H (0.15-1.2) mg/dL AST 19 (0-40) U/L ALT 12 (0-41) U/L Alkaline Phosphata se 53 (40-130) IU/L NT-Pro-B Natriuret Pep 613 H (0-450) pg/mL Total Protein 7.3 (6.6-8.7) g/dL Albumin 4.0 (3.5-5.2) g/dL Globulin 3.3 (1.3-4.6) g/dL SARS-CoV-2 Ag (Rap id) (Negative) 07/04/20 Range/Units 05:41 WBC (4.0-10.0) 10^3/ uL RBC (4.1-5.3) 10^6/u L Hgb (11.7-16.6) g/dL Hct (42.0-52.0) % MCV (80-94) fL MCH (28.0-34.0) pg MCHC (30.0-36.0) g/dL RDW (12.1-15.1) % Plt Count (130-400) 10^3/c mm MPV (7.4-10.4) fL Neut % (Auto) % Lymph % (Auto) % Evans % (Auto) % Eos % (Auto) % Baso % (Auto) % Neut # (Auto) (1.8-7.7) 10^3/u L Lymph # (Auto) (0.8-4.8) 10^3/u L Evans # (Auto) (0.2-0.9) 10^3/u L Eos # (Auto) (0.0-0.8) 10^3/u L Baso # (Auto) (0.0-0.1) 10^3/u L Nucleated RBC % (a uto) % Nucleated RBCs # /100WBC Sodium (136-145) mmol/L Potassium (3.5-5.1) mmol/L Chloride (98-107) mmol/L Carbon Dioxide (22-29) mmol/L Anion Gap (5-19) BUN (8-23) mg/dL Creatinine (0.7-1.2) mg/dL GFR Calculation Glucose (65-115) mg/dL Calculated Osmolal ity (285-295) mOsm/k g Lactate (0.5-2.2) mmol/L Calcium (8.5-10.5) mg/dL Total Bilirubin (0.15-1.2) mg/dL AST (0-40) U/L ALT (0-41) U/L Alkaline Phosphata se (40-130) IU/L NT-Pro-B Natriuret Pep (0-450) pg/mL Total Protein (6.6-8.7) g/dL Albumin (3.5-5.2) g/dL Globulin (1.3-4.6) g/dL SARS-CoV-2 Ag (Rap id) Negative (Negative) Discharge Plan Discharge Prescriptions: No Action albuterol sulfate 90 mcg/actuation HFA aerosol inhaler 2 puff INHALATION Q6H PRN (Reason: Shortness Of Breath) RF: 0 albuterol sulfate 2.5 mg /3 mL (0.083 %) solution for nebulization 2.5 mg INHALATION Q6H RF: 0 rivaroxaban 20 mg tablet 20 mg PO DAILY RF: 0 Hold Instructions: Resume on 06/15/20. pravastatin 40 mg tablet 40 mg PO DAILY RF: 0 omeprazole 20 mg capsule,delayed release(DR/EC) 20 mg PO DAILY RF: 0 budesonide-formoterol [Symbicort] 160-4.5 mcg/actuation HFA aerosol inhaler 2 puff INHALATION BID RF: 0 carvedilol 25 mg tablet 25 mg PO BID RF: 0 Coding Level of Care Code ED Plate Molder for Chg Fwd Exam Comprehensive
[2020-07-04] MEDS: sodium chloride 0.9% 1,000 ML 999 ML IV (05:15)
[2020-07-04 05:26] LABS: Basophils % 0.2 %; Eosinophils # 0.1 10^3/uL (0.0-0.8); Eosinophils % 0.7 %; Hematocrit 42.5 % (42.0-52.0); Hemoglobin 13.9 g/dL (11.7-16.6); Lymphocytes # 1.3 10^3/uL (0.8-4.8); Lymphocytes % 8.7 %; Mean Corpuscular HGB Conc 32.7 g/dL (30.0-36.0); Mean Corpuscular Hemoglobin 29.4 pg (28.0-34.0); Mean Corpuscular Volume 89.9 fL (80-94); Mean Platelet Volume 11.9 fL (7.4-10.4); Monocytes # 1.8 10^3/uL (0.2-0.9); Monocytes % 11.8 %; Neutrophils # 11.65 10^3/uL (1.8-7.7); Neutrophils % 78.2 %; Nucleated Red Blood Cells % 0 %; Platelet Count 131 10^3/cmm (130-400); Red Blood Count 4.73 10^6/uL (4.1-5.3); White Blood Count 14.9 10^3/uL (4.0-10.0)
[2020-07-04 05:52] LABS: Alanine Aminotransferase 12 U/L (0-41); Alkaline Phosphatase 53 IU/L (40-130); Blood Urea Nitrogen 13 mg/dL (8-23); Calcium 9.4 mg/dL (8.5-10.5); Carbon Dioxide 23 mmol/L (22-29); Chloride 101 mmol/L (98-107); Globulin 3.3 g/dL (1.3-4.6); Glucose 114 mg/dL (65-115); NT Pro B Type Natriuretic Pept 613 pg/mL (0-450); Osmolality Calculated 281 mOsm/kg (285-295); Sodium 135 mmol/L (136-145); Total Bilirubin 2.1 mg/dL (0.15-1.2); Total Protein 7.3 g/dL (6.6-8.7)
[2020-07-04 05:53] LABS: Lactate (Lactic Acid level) 1.2 mmol/L (0.5-2.2)
[2020-07-04 06:00] LABS: Anion Gap 15.2 (5-19); Aspartate Amino Transferase 19 U/L (0-40); Potassium 4.2 mmol/L (3.5-5.1)
[2020-07-04] MEDS: vancomycin 1,000 MG in sodium chloride 0.9% 250 ML 250 MG IV (06:08)
[2020-07-04 06:34] LABS: SARS Covid-2 Antigen Negative (Negative)
--- NOTE | 2020-07-04 08:58 | P.HP_ITS ---
Providers/Chief Complaint Admitting Physician: Monica Beauchamp DO Primary Care Provider: Yuan Odonnell DO Chief Complaint: right leg pain History of Present Illness Bjorn Long is a 79 year old male with a past medical history of COPD, atrial fibrillation on chronic anticoagulation, obstructive sleep apnea unable to tolerate CPAP and hypertension that presented to the emergency department for increasing pain and redness in the right lower extremity. Patient reports that he had just recently drained by Dr. Boyd in the clinic, was not placed on any antibiotics at that time. Reports over the past couple of days has had increasing redness. Reports a fever overnight of 104 ?F. He denies any other symptoms, no shortness of breath, no cough, no abdominal pain or nausea. Patient reports his only concern is swelling and redness in the right leg. He reports no chest pain or shortness of breath, does report that he has COPD and chronic wheezing, is not on any home oxygen and has been unable to tolerate CPAP in the past. Patient noted that he felt dizzy and lightheaded last night when he got up to use the restroom when his temperature was elevated. Denies any exposure to anyone under investigation for COVID-19, denies any exposure to anyone positive for COVID-19. Patient was seen and evaluated in the emergency department noted to have concern for right lower extremity cellulitis requiring observation placement. Review of Systems Const: Reports: fever(s); Denies: chills Eyes: Denies: change in vision ENMT: Denies: nasal congestion Card: Denies: chest pain, palpitations or edema Resp: Denies: dyspnea, productive cough or hemoptysis GI: Denies: abdominal pain, nausea, vomiting, diarrhea, constipation, hematochezia or melena : Denies: dysuria or hematuria Musc: Reports: extremity pain; Denies: muscle cramps Skin/Breast: Reports: other (Redness and lesion in the right lower extremity with drainage); Denies: rash Neuro: Denies: headache(s) or dizziness Psych: Denies: anxiety or depression Endo: Denies: polyuria or hot flashes All/Lymph: Denies: easy bruising or easy bleeding Medications/Allergies Home Medications Medication Instructions Recorded Confirmed Last Taken Type albuterol sulfate 90 mcg/actuation 2 puff INHALATION Q4H PRN 05/30/20 07/04/2020 05:00 History aerosol inhaler budesonide-formoterol HFA 160 2 puff INHALATION BID 05/30/20 07/04/20 06/12/20 05:00 History mcg-4.5 mcg/actuation aerosol inhaler omeprazole 20 mg capsule,delayed 20 mg PO DAILY 05/30/20 07/04/20 06/11/20 History release pravastatin 40 mg tablet 40 mg PO DAILY 05/30/20 07/04/20 06/11/20 History rivaroxaban 20 mg tablet 20 mg PO QPM 05/30/20 07/04/20 06/09/20 History carvedilol 25 mg tablet 25 mg PO BID tab 06/28/20 07/04/20 Unknown History Glucosamine 1 tab PO DAILY 07/04/20 07/04/20 Unknown History hydrocodone-acetaminophen [[place]] 1 tab PO Q6H PRN 07/04/20 07/04/20 Unknown History ipratropium-albuterol 3 ml INHALATION QID PRN 07/04/20 07/04/20 Unknown History ipratropium-albuterol [Combivent 1 puff INHALATION QID PRN 07/04/20 07/04/20 Unknown History Respimat] Allergies Allergy/AdvReac Type Severity Reaction Status Date / Time No Known Allergies Allergy Verified 07/04/20 09:06 PFSH Acute PFSH: Medical History (Updated 07/04/20 @ 09:03 by Monica Beauchamp DO) Atrial fibrillation COPD (chronic obstructive pulmonary disease) H/O malignant neoplasm of skin Hypertension Surgical History H/O circumcision H/O colonoscopy 5 yrs ago H/O esophagogastroduodenoscopy 1993 Hx of excision of mass (06/12/20) Right leg Family History Other CAD (coronary artery disease) Diabetes Denies family history of Anesthesia complication Bleeding disorder Cancer Social History Smoking and tobacco status: former smoker Alcohol intake: never Household members: spouse Marital status: Current occupational status: retired History of recent travel: No Vitals/I&O/Wt Last Vital Signs Temp 97.9 F 07/04/20 04:39 Pulse 87 07/04/20 05:44 Resp 18 07/04/20 08:25 BP 119/69 07/04/20 08:25 Pulse Ox 97 07/04/20 08:25 07/03/20 07/04/20 07/04/20 22:59 06:59 14:59 Intake Total 1250 / 1250 Balance 1250 / 1250 Weight last 48 hrs Weight 111.13 kg Physical Exam Const: COMMON NORMALS: patient oriented x3 and alert GENERAL APPEARANCE: cooperative ORIENTATION/CONSCIOUSNESS: Yes awake, Yes oriented to person, Yes oriented to place and Yes oriented to time HENMT: COMMON NORMALS: normocephalic and atraumatic HEAD & SCALP: normocephalic and atraumatic Eye: COMMON NORMALS: Equal, round and reactive pupils present PUPIL: Yes Equal, round and reactive pupils present Neck/C-Spine: COMMON NORMALS: supple GENERAL: Yes normal visual inspection Resp: AUSCULTATION: no rhonchi and wheezes OTHER: Patient on room air, prolonged expiratory phase, expiratory wheezing bilaterally, in no respiratory distress, respirations even and unlabored Cardio: COMMON NORMALS: regular rate, regular rhythm and No murmurs present (Cardio) RATE: regular rate RHYTHM: regular rhythm GI: COMMON NORMALS: Soft to palpation and non-tender INSPECTION: No abdominal distension AUSCULTATION: Yes normoactive bowel sounds PALPATION: Yes Soft to palpation Extremity: COMMON NORMALS: no calf tenderness NARRATIVE EXTREMITY EXAM: Patient has erythema in the right lower extremity with central eschar and drainage Neuro: COMMON NORMALS: patient oriented x3, CN's II-XII intact bilaterally, moves all extremities and no focal motor deficits SENSORIUM/ORIENTATION: Yes alert, Yes oriented to person, Yes oriented to place and Yes oriented to time SPEECH: speech normal Psych: COMMON NORMALS: mental status grossly normal and cooperative Skin: OTHER: Erythema over the right anterior chávez with central eschar with drainage Data : 07/04/20 05:00 07/04/20 05:00 Micro: Microbiology 07/04/20 05:05 Blood Culture - Preliminary Blood SPECIMEN COLLECTED 07/04/20 05:00 Blood Culture - Preliminary Blood SPECIMEN COLLECTED A&P Assessment and plan (1) Cellulitis: Cellulitis of the right lower extremity Excision of angiolipoma performed on 06/28/[address] Boyd Given vancomycin in the ED, transition to clindamycin Status: Acute (2) Atrial fibrillation: Continue home Coreg 12.5 mg twice daily Patient is on Xarelto, will transition to Lovenox while hospitalized in case he requires further surgical debridement Status: Acute (3) COPD (chronic obstructive pulmonary disease): Without acute exacerbation. Patient has bilateral wheezing at baseline. This is continued, continue home inhalers Oxygen per protocol and respiratory therapy to assess and treat Status: Acute (4) Hypertension: Continue home Coreg Status: Acute Additional A&P Information Diet: Cardiac DVT prophylaxis: Patient is on Xarelto at home, will transition to treatment dose Lovenox while inpatient in case she required surgical intervention CODE STATUS: Do Not Resuscitate/DNI, this was discussed with patient on admission Attestations Medical Necessity Statement*: Observation placement due to right lower extremity cellulitis, expected stay less than 2 midnights Coding Level of Care Code Acute Receiving Associate for [facility] Fwd Exam Comprehensive Diagnoses Cellulitis L03.90 Atrial fibrillation I48.91 COPD (chronic obstructive pulmonary disease) J44.9 Hypertension I10
[2020-07-04] MEDS: lactobacillus 1 Tablet 1 TAB PO ×4 (11:11→21:38)
[2020-07-04] MEDS: sodium chloride 0.9% 1,000 ML 50 ML IV (11:11)
[2020-07-04] MEDS: docusate sodium 100 mg Capsule PO ×2 (11:11→17:59)
[2020-07-04] MEDS: clindamycin 600 MG/50 ML PREMIX 100 MG IV ×2 (11:11→18:03)
[2020-07-04] MEDS: enoxaparin 100 mg/mL Syringe SUBCUT ×2 (11:12→21:38)
[2020-07-04] MEDS: ipratropium-albuterol 3 mL Neb INHALATION ×2 (14:46→20:59)
--- NOTE | 2020-07-04 15:11 | PC.CHAP ---
Pastoral Care Encounter/Spiritual Assessment Type of Contact [] Declined ham facer visit [] Patient/Family/Request visit [] Outpatient visit [] Follow-up visit [] Physician referral [] Code/Alert [x] Routine visit [] Staff referral [] Actively dying [] Patient sleeping [] Family support [] [] Out of room [] Palliative care [] [x] Receiving care in room [] Pre-surgical visit [] Trauma [] Long length of stay [] ICU visit [] Other: Relational/Emotional Strength [x] Patient feels connected with others/family/visitors/staff [] Distress [] Loneliness/isolation [] Abandonment Spirituality of Patient [] Person of Deanna [] Attends Alevism of their Deanna [] Believes in Prayer [] Reads Bible or Baptist materials [] There are Spiritual issues to be addressed Press Cutter Interventions [] Prayer [] Active listening [] Non-anxious presence [] Spiritual/emotional support [] Crisis/trauma care [] Spiritual counseling [] Bereavement support [] Provided bereavement packet [] Provided Bible/devotional materials [] Provided toy/stuffed animal, coloring book to patient or family member [] Provided Communion [] Anointing/[place] [] Salvation [] Completed spiritual assessment [] Other: Impact on Illness or Injury [] Angry [] Fearful [] Anxious [] Often cries [] Exhaustion [] Unable to work [] Unable to attend denominational [] Unable to walk/stand [] Unable to read [] Unable to drive [] Unable to eat/drink [] Unable to sleep [] Unable to be with family [] Patient intubated [] Other: Summary Had a good visit has a good attitude, going home to family Time spent with patient 10 mins
[2020-07-04] MEDS: carvedilol 12.5 mg Tablet PO (17:59)
[2020-07-04] MEDS: acetaminophen 325 mg Tablet 650 MG PO (17:59)
--- NOTE | 2020-07-04 18:00 | PC.NURSE ---
when i was rounding on the patient he was leaning to his right side could not sit up straight on his own. i assisted him. took vitals and went to report to the charge nurse. Kate his nurse was off the floor. 102.6 [id number]
--- NOTE | 2020-07-04 18:08 | CTR_ITS ---
PROCEDURE INFORMATION: Exam: CT Head Without And With Contrast Exam date and time: 07/04/2020 8:34 PM Age: 79 years old Clinical indication: Altered mental status/memory loss; Additional info: Change in status TECHNIQUE: Imaging protocol: Computed tomography of the head without and with intravenous contrast. Radiation optimization: All CT scans at this facility use at least one of these dose optimization techniques: automated exposure control; mA and/or kV adjustment per patient size (includes targeted exams where dose is matched to clinical indication); or iterative reconstruction. Contrast material: OMNI 300; Contrast volume: 95 ml; Contrast route: INTRAVENOUS (IV); COMPARISON: MRI Head w/wo* [id number] 01/12/2018 8:03 AM RADIATION DOSE METRICS: Total DLP (mGy-cm): 1369.72 FINDINGS: Brain: There is moderate diffuse cerebral atrophy. Patchy areas of hypoattenuation seen in the deep white matter of the cerebral hemispheres bilaterally compatible with deep white matter microvascular disease. Hypoattenuation and encephalomalacia is seen within the right parietal lobe posteriorly compatible with a chronic infarction. Ventricles: No ventriculomegaly. Bones/joints: Unremarkable. No acute fracture. Paranasal sinuses: Minimal fluid and mucosal thickening is seen within the ethmoidal sinuses. Mastoid air cells: Visualized mastoid air cells are well aerated. Soft tissues: Unremarkable. CT/CT head wo/w con [id number] IMPRESSION: There are no acute intracranial findings. Radiation Dose CTDIVOL = (mGy): DLP = 1369.72 (mGy-cm)
[2020-07-04] MEDS: iohexol 300 mg/mL 100 mL Btl IV (22:31)
[2020-07-05] VITALS (11 sets, daily range): BP systolic 105–123; BP diastolic 62–69; PULSE 79–94; RESP 17–24; TEMP 36.8–37.3; O2SAT 90–96; BMI 30.6
--- NOTE | 2020-07-05 | USCV_ITS ---
Lamoni, James Age: 79 Gender: M : 1940 Exam Date: 07/05/2020 10:37 Ordering Phys: Monica Beauchamp DO Technologist: Alissa Benitez [place] [facility] [place] Indication: leg pain HISTORY: Lower extremity pain. PROCEDURES: Venous duplex imaging was performed in only the right lower extremity. The following venous structures were evaluated: common femoral vein, profunda vein, proximal portion of the greater saphenous vein, superficial femoral vein, and the popliteal vein. In addition, the posterior tibial and peroneal trunk were evaluated. Serial compression, augmentation maneuvers, and spectral Doppler flow evaluation were performed. FINDINGS: Normal 2-D Doppler and augmentation and compressibility throughout the lower extremity venous structures. Additional imaging through the proximal calf veins also reveals no thrombus. Limited evaluation of the greater saphenous vein is patent with no thrombus.. CONCLUSIONS No evidence of DVT in the above-mentioned identifiable veins. Dr Jose Jc MD [facility] (Electronically Signed) Final Date: 07 July 2020 18:49 S
[2020-07-05] MEDS: clindamycin 600 MG/50 ML PREMIX 100 MG IV ×3 (01:04→16:27)
[2020-07-05] MEDS: ipratropium-albuterol 3 mL Neb INHALATION ×3 (03:25→21:11)
[2020-07-05] MEDS: sodium chloride 0.9% 1,000 ML 50 ML IV (04:23)
[2020-07-05 06:32] LABS: Alanine Aminotransferase 9 U/L (0-41); Albumin Level 3.6 g/dL (3.5-5.2); Alkaline Phosphatase 40 IU/L (40-130); Anion Gap 14.7 (5-19); Aspartate Amino Transferase 17 U/L (0-40); Blood Urea Nitrogen 13 mg/dL (8-23); Carbon Dioxide 22 mmol/L (22-29); Chloride 102 mmol/L (98-107); Globulin 2.9 g/dL (1.3-4.6); Glucose 99 mg/dL (65-115); Osmolality Calculated 280 mOsm/kg (285-295); Potassium 3.7 mmol/L (3.5-5.1); Sodium 135 mmol/L (136-145); Total Protein 6.5 g/dL (6.6-8.7)
[2020-07-05 07:44] LABS: Basophils % 0.4 %; Eosinophils # 0.1 10^3/uL (0.0-0.8); Eosinophils % 0.7 %; Hemoglobin 12.4 g/dL (11.7-16.6); Lymphocytes # 1.6 10^3/uL (0.8-4.8); Lymphocytes % 19.7 %; Mean Corpuscular HGB Conc 32.6 g/dL (30.0-36.0); Mean Corpuscular Hemoglobin 30.1 pg (28.0-34.0); Mean Corpuscular Volume 92.2 fL (80-94); Mean Platelet Volume 12.6 fL (7.4-10.4); Monocytes # 0.8 10^3/uL (0.2-0.9); Monocytes % 9.4 %; Neutrophils # 5.63 10^3/uL (1.8-7.7); Neutrophils % 69.3 %; Nucleated Red Blood Cells % 0 %; Platelet Count 103 10^3/cmm (130-400); Red Blood Count 4.12 10^6/uL (4.1-5.3); Red Cell Distribution Width 14.6 % (12.1-15.1); White Blood Count 8.1 10^3/uL (4.0-10.0)
--- NOTE | 2020-07-05 09:03 | PC.NURSE ---
RIGHT LEG - STASIS ULCER. CLEANSED WITH NS AND GAUZE, MEASURED WOUND AND ERYTHEMA MARKED ON EXTREMITY. DOPPLER USED TO FIND PULSE AND UNABLE TO FIND ONE. COVERED WOUND WITH OPTIFOAM. WILL ROUND WITH PHYSICIAN AND CONTINUE TO MONITOR. LESIAW, INSTRUCTOR BUS TROLLEY AND TAXI
[2020-07-05] MEDS: atorvastatin 40 mg Tablet 20 MG PO (09:07)
[2020-07-05] MEDS: carvedilol 12.5 mg Tablet PO ×2 (09:07→16:28)
[2020-07-05] MEDS: enoxaparin 100 mg/mL Syringe SUBCUT ×2 (09:07→21:01)
[2020-07-05] MEDS: pantoprazole DR 40 mg Tablet PO (09:07)
[2020-07-05] MEDS: docusate sodium 100 mg Capsule PO (09:07)
[2020-07-05] MEDS: lactobacillus 1 Tablet 1 TAB PO ×4 (09:08→21:01)
--- NOTE | 2020-07-05 09:19 | USCV_ITS ---
Bjorn Long Age: 79 Gender: M : 1940 Exam Date: 07/05/2020 10:41 Ordering Phys: Monica Beauchamp DO Technologist: Alissa Benitez Exam Location: [facility] [place] Indication: pvd Risk Factors: Previous Vascular Surgery: RIGHT LEFT BP: 100.0 / BP: 98.00/ 0 Waveform Velocity (cm/s) Velocity (cm/s) Waveform Triphasic 65.1 Iliac Prox Triphasic 55.9 Iliac Mid Triphasic 51.8 Iliac Distal Triphasic 30.3 DIESEL ENGINEER Triphasic 66.0 SFA Prox Triphasic 72.2 SFA Mid Triphasic 52.8 SFA Dist Triphasic 38.8 POP Biphasic 32.9 SANDER MACHINE Biphasic 27.3 DPA 1.6 RYAN FINDINGS Mild to moderate scattered dense plaques in the iliac and femoral artery on the right side Mild to moderate scattered dense plaques in the iliac and femoral arteries Normal Doppler flow velocity Near normal arterial Doppler waveforms Patent arteries on the right side Supernormal resting RYAN of 1.6 on the right side. CONCLUSIONS Mild to moderate scattered dense plaques in the iliac and femoral arteries on the right side No significant arterial obstruction, based on the above findings Dr Jose Jc MD [facility] (Electronically Signed) Final Date: 07 July 2020 18:52 S
--- NOTE | 2020-07-05 11:37 | P.PN_ITS ---
Subjective Subjective: Interval history: Patient awake sitting in the chair at time of exam. He reports that he has having continued discomfort in the right leg. Continued thick drainage. Denies any other concerns at this time. Vitals/I&O/Wt Last Vital Signs Temp 99.0 F 07/05/20 08:00 Pulse 93 07/05/20 09:02 Resp 17 07/05/20 08:54 BP 109/69 07/05/20 08:00 Pulse Ox 93 07/05/20 08:54 07/04/20 07/05/20 07/05/20 22:59 06:59 14:59 Intake Total 170 / 1590 1010 / 2600 480 / 480 Output Total 400 / 400 Balance -230 / 1190 1010 / 2200 480 / 480 Weight last 48 hrs Weight 111.13 kg Weight 111.13 kg Physical Exam Const: COMMON NORMALS: patient oriented x3 and alert GENERAL APPEARANCE: co operative ORIENTATION/CONSCIOUSNESS: Yes awake, Yes oriented to person, Yes oriented to place and Yes oriented to time HENMT: COMMON NORMALS: normocephalic and atraumatic HEAD & SCALP: normocephalic and atraumatic Eye: COMMON NORMALS: Equal, round and reactive pupils present PUPIL: Yes Equal, round and reactive pupils present Neck/C-Spine: COMMON NORMALS: supple GENERAL: Yes normal visual inspection Resp: COMMON NORMALS: normal respiratory effort and clear to auscultation bilaterally EFFORT & INSPECTION: Yes able to speak in complete sentences AUSCULTATION: clear to auscultation bilaterally, no rhonchi and no wheezes Cardio: COMMON NORMALS: regular rate, regular rhythm and No murmurs present (Cardio) RATE: regular rate RHYTHM: regular rhythm GI: COMMON NORMALS: Soft to palpation and non-tender PALPATION: Yes Soft to palpation Neuro: COMMON NORMALS: patient oriented x3, CN's II-XII intact bilaterally, moves all extremities and no focal motor deficits SENSORIUM/ORIENTATION: Yes alert, Yes oriented to person, Yes oriented to place and Yes oriented to time SPEECH: speech normal Psych: COMMON NORMALS: mental status grossly normal and cooperative Skin: NARRATIVE SKIN EXAM: Patient with erythema in the right lower extremity over the anterior chávez, central eschar has been removed with patient continues t o have purulent drainage with palpation around the open wound. Data : 07/05/20 04:48 07/05/20 04:48 Micro: Microbiology 07/04/20 05:05 Blood Culture - Preliminary Blood NEGATIVE TO DATE 07/04/20 05:00 Blood Culture - Preliminary Blood NEGATIVE TO DATE A&P Assessment and plan (1) Cellulitis: Cellulitis of the right lower extremity Excision of angiolipoma performed on 06/28/[address] Boyd Continued on clindamycin Patient has continued purulent drainage with concern for underlying fluid collection, will discuss further with general surgery today. Consult Dr. Jones Status: Acute (2) Atrial fibrillation: Continue home Coreg 12.5 mg twice daily Patient is on Xarelto, will transition to Lovenox while hospitalized in case he requires further surgical debridement Status: Acute (3) COPD (chronic obstructive pulmonary disease): Without acute exacerbation. Patient has bilateral wheezing at baseline. This is continued, continue home inhalers Oxygen per protocol and respiratory therapy to assess and treat Status: Acute (4) Hypertension: Continue home Coreg Status: Acute Additional A&P Information Concern for peripheral vascular disease: RYAN ordered to further evaluate the right lower extremity Diet: Cardiac DVT prophylaxis: Patient is on Xarelto at home this is on hold, and he remains on treatment dose Lovenox while inpatient in case she required surgical intervention CODE STATUS: Do Not Resuscitate/DNI, this was discussed with patient on admission Attestations Medical Necessity Statement*: Patient requires further hospitalization due to continued cellulitis in the right lower extremity with the potential of requiring surgical debridement. Transition to inpatient admission Coding Level of Care Code Acute Collections Curator for [facility] Millie Diagnoses Cellulitis L03.90 Atrial fibrillation I48.91 COPD (chronic obstructive pulmonary disease) J44.9 Hypertension I10
--- NOTE | 2020-07-05 15:24 | P.CONIM_ITS ---
Providers/Reason For Consult Consulting Physican/Specialty*: Rey Jones MD Reason for Consult*: Leg abscess Attending Physician: Monica Beauchamp DO Primary Care Provider: Yuan Odonnell DO History of Present Illness History of Present Illness Chief Complaint: My leg hurts History of present illness: Bjorn Long is a 79 year old male with a past medical history of COPD, atrial fibrillation on chronic anticoagulation, obstructive sleep apnea unable to tolerate CPAP and hypertension that presented to the emergency department for increasing pain and redness in the right lower extremity. Patient undergone uneventful excision of right lower extremity mass towards the end of May by Dr. Boyd my partner, patient overall did well and he was seen recently in the office and it turned out to be an angiolipoma. Apparently the patient later on developed cellulitic changes and developed fevers and he was admitted on the hospitalist service for further evaluation. Denies any exposure to anyone under investigation for COVID-19, denies any exposure to anyone positive for COVID-19. General surgery was consulted for further evaluation for concern of developing an abscess of the right lower extremity Review of Systems General: Reports: 10 or more systems reviewed and unremarkable except in HPI and below Meds/Allergies Home Medications and Allergies Home Medications Medication Instructions Recorded Confirmed Last Taken Type albuterol sulfate 90 mcg/actuation 2 puff INHALATION Q4H PRN 05/30/20 07/04/20 06/12/20 05:00 History aerosol inhaler budesonide-formoterol HFA 160 2 puff INHALATION BID 05/30/20 07/04/20 06/12/20 05:00 History mcg-4.5 mcg/actuation aerosol inhaler omeprazole 20 mg capsule,delayed 20 mg PO DAILY 05/30/20 07/04/20 06/11/20 History release pravastatin 40 mg tablet 40 mg PO DAILY 05/30/20 07/04/20 06/11/20 History rivaroxaban 20 mg tablet 20 mg PO QPM 05/30/20 07/04/20 06/09/20 History carvedilol 25 mg tablet 25 mg PO BID tab 06/28/20 07/04/20 Unknown History Glucosamine 1 tab PO DAILY 07/04/20 07/04/20 Unknown History hydrocodone-acetaminophen [[place]] 1 tab PO Q6H PRN 07/04/20 07/04/20 Unknown History ipratropium-albuterol 3 ml INHALATION QID PRN 07/04/20 07/04/20 Unknown History ipratropium-albuterol [Combivent 1 puff INHALATION QID PRN 07/04/20 07/04/20 Unknown History Respimat] Allergies Allergy/AdvReac Type Severity Reaction Status Date / Time No Known Allergies Allergy Verified 07/05/20 16:09 Current Medications Current Medications Generic Name Dose Route Start Last Admin Trade Name Freq PRN Reason Stop Dose Admin Acetaminophen 650 mg 07/04/20 08:55 07/04/20 17:59 Tylenol PO 650 mg Q6H PRN Administration Mild/Mod Pain Or Temp >/= 101 Albuterol/Ipratropium 3 ml 07/04/20 15:00 07/05/20 08:54 Duoneb INHALATION 3 ml Q6H.RESPIRATORY PRN Administration SHORTNESS OF BREATH Albuterol/Ipratropium 3 ml 07/04/20 12:00 07/04/20 14:46 Duoneb INHALATION 3 ml QID.RESPIRATORY PRN Administration SOB/WHEEZING Atorvastatin Calcium 20 mg 07/05/20 09:00 07/05/20 09:07 Lipitor PO 20 mg DAILY BANDAR Administration Carvedilol 12.5 mg 07/04/20 18:00 07/05/20 09:07 Coreg PO 12.5 mg BID BANDAR Administration Docusate Sodium 100 mg 07/04/20 09:00 07/05/20 09:07 Colace PO 100 mg BID BANDAR Administration Enoxaparin Sodium 100 mg 07/04/20 09:30 07/05/20 09:07 Lovenox SUBCUT 100 mg Q12H BANDAR Administration Sodium Chloride 1,000 mls @ 50 mls/hr 07/04/20 09:00 07/05/20 04:23 Sodium Chloride 0.9% IV 50 mls/hr .Q20H BANDAR Administration Clindamycin HCl/Dextrose 600 mg in 50 mls @ 100 mls/hr 07/04/20 09:30 07/05/20 09:08 Cleocin IV 100 mls/hr Q8H BANDAR Administration Protocol Lactobacillus Acidophilus 1 tab 07/04/20 09:00 07/05/20 13:15 Floranex PO 1 tab QID BANDAR Administration Pantoprazole Sodium 40 mg 07/05/20 09:00 07/05/20 09:07 Protonix PO 40 mg DAILY BANDAR Administration Fluticasone/Salmeterol 1 puff 07/04/20 20:00 07/05/20 08:54 Advair Diskus 500-50 INHALATION 1 puff BID.RESPIRATORY BANDAR Administration PFSH Acute PFSH: Medical History Atrial fibrillation COPD (chronic obstructive pulmonary disease) H/O malignant neoplasm of skin Hypertension Surgical History H/O circumcision H/O colonoscopy 5 yrs ago H/O esophagogastroduodenoscopy 1993 Hx of excision of mass (06/12/20) Right leg Family History Other CAD (coronary artery disease) Diabetes Denies family history of Anesthesia complication Bleeding disorder Cancer Social History Smoking and tobacco status: former smoker Alcohol intake: never Household members: spouse Marital status: Current occupational status: retired History of recent travel: No Vitals/I&O/Wt Last Vital Signs Temp 99.1 F 07/05/20 12:00 Pulse 89 07/05/20 12:00 Resp 18 07/05/20 12:00 BP 110/65 07/05/20 12:00 Pulse Ox 96 07/05/20 12:00 07/05/20 07/05/20 07/05/20 06:59 14:59 22:59 Intake Total 1010 / 2600 1140 / 1140 Output Total 600 / 600 400 / 1000 Balance 1010 / 2200 540 / 540 -400 / 140 Weight last 48 hrs Weight 245 lb Weight 245 lb Physical Exam Narrative: EXAM NARRATIVE: Patient is conscious alert oriented X3 BMI 31 Head and neck examination PERRLA no masses no cervical lymphadenopathy no jaundice Cardiac examination audible S1-S2 no murmurs no gallops no arrhythmias Chest is clear bilateral,abscence of Rhonchi or wheezes,no surgical emphysema Abdomen nontender nondistended soft no organomegaly guarding or rigidity/no sig ns of peritonitis Right leg cellulitic changes towards the medial aspect of the leg with previous surgical incision with purulent discharge consistent with leg. Data Micro: Micro: Microbiology 07/04/20 05:05 Blood Culture - Pr eliminary Blood NEGATIVE TO DESMOND E 07/04/20 05:00 Blood Culture - Pr eliminary Blood NEGATIVE TO DESMOND E A&P Assessment and plan (1) Leg abscess: After history taking physical examination and reviewing the chart we will plan to perform I&D of right leg abscess in the OR tomorrow Informed consent per chart Status: Acute Consult Attestations Medical Necessity Statement: Per hospitalist service Time Spent in Patient Care: (>than 50% of time spent in counselling and/or direct pt care on unit) . Coding Level of Care Code Acute Soda Column Operator for [facility] Diagnoses Leg abscess L02.419
[2020-07-06] VITALS (18 sets, daily range): BP systolic 106–145; BP diastolic 63–86; PULSE 18–93; RESP 10–22; TEMP 36.2–37.7; O2SAT 90–98
[2020-07-06] MEDS: clindamycin 600 MG/50 ML PREMIX 100 MG IV ×3 (01:24→16:51)
[2020-07-06] MEDS: sodium chloride 0.9% 1,000 ML 50 ML IV ×2 (03:28→16:57)
[2020-07-06] MEDS: ipratropium-albuterol 3 mL Neb INHALATION ×3 (05:37→20:51)
[2020-07-06 06:15] LABS: Basophils % 0.6 %; Eosinophils # 0.3 10^3/uL (0.0-0.8); Hematocrit 37.4 % (42.0-52.0); Hemoglobin 12.1 g/dL (11.7-16.6); Lymphocytes # 1.8 10^3/uL (0.8-4.8); Lymphocytes % 25.7 %; Mean Corpuscular HGB Conc 32.4 g/dL (30.0-36.0); Mean Corpuscular Hemoglobin 29.4 pg (28.0-34.0); Mean Platelet Volume 11.1 fL (7.4-10.4); Monocytes % 13.5 %; Neutrophils # 3.94 10^3/uL (1.8-7.7); Neutrophils % 55.8 %; Nucleated Red Blood Cells % 0 %; Platelet Count 102 10^3/cmm (130-400); Red Blood Count 4.11 10^6/uL (4.1-5.3); Red Cell Distribution Width 14.6 % (12.1-15.1); White Blood Count 7.1 10^3/uL (4.0-10.0)
[2020-07-06 06:55] LABS: Alanine Aminotransferase 12 U/L (0-41); Albumin Level 3.6 g/dL (3.5-5.2); Alkaline Phosphatase 44 IU/L (40-130); Anion Gap 13.1 (5-19); Aspartate Amino Transferase 19 U/L (0-40); Blood Urea Nitrogen 13 mg/dL (8-23); Calcium 8.3 mg/dL (8.5-10.5); Carbon Dioxide 24 mmol/L (22-29); Chloride 104 mmol/L (98-107); Globulin 3.2 g/dL (1.3-4.6); Glucose 109 mg/dL (65-115); Osmolality Calculated 285 mOsm/kg (285-295); Potassium 4.1 mmol/L (3.5-5.1); Sodium 137 mmol/L (136-145); Total Bilirubin 1.1 mg/dL (0.15-1.2); Total Protein 6.8 g/dL (6.6-8.7)
[2020-07-06] MEDS: carvedilol 12.5 mg Tablet PO ×2 (08:14→16:51)
--- NOTE | 2020-07-06 08:17 | P.ANESASSM_ITS ---
Pre-Anesthetic Assessment Pre-Anesthetic Assessment: Height/Weight: Height 1.91 m Weight 114.39 kg Temp Pulse Resp BP Pulse Ox 97.2 F L 93 18 145/81 93 07/06/20 07:42 07/06/20 07:49 07/06/20 07:49 07/06/20 07:42 07/06/20 07:49 Preop Diagnosis: Subcutaneous mass right leg Proposed Procedure: Operation Date: 07/06/20 09:40 Proposed Procedures p Incision And Drainage Abscess Right Leg(Right) - Rey Jones MD Familial anesthetic complications: none Was Beta Deanne taken within 24 hours: Yes Last intake: npo > 8 hrs Social: Social History: No alcohol and No tobacco Exam: Pre-Anes Outpt Exam: alert, oriented x 3 and regular rate & rhythm Additional Exam Findings (including area of procedure): wheeze b/l Airway: Cervical ROM: WNL MP: 3 Dentition: False Pulmonary: Pulmonary: COPD and Sleep apnea (does not wear his cpap) CV/HEM: CV/HEM: Afib and HTN Anesthetic Plan: ASA status: 3 Anesthesia: MAC Risk of > 500 ml blood loss (7ml/kg in children): No Meds/Allergies Current Medications: Current Medications Generic Name Dose Route Start Last Admin Trade Name Freq PRN Reason Stop Dose Admin Acetaminophen 650 mg 07/04/20 08:55 07/04/20 17:59 Tylenol PO 650 mg Q6H PRN Administration Mild/Mod Pain Or Temp >/= 101 Albuterol/Ipratrop ium 3 ml 07/04/20 15:00 07/06/20 05:37 Duoneb INHALATION 3 ml Q6H.RESPIRATORY P RN Administration SHORTNESS OF KAIA TH Albuterol/Ipratrop ium 3 ml 07/04/20 12:00 07/04/20 14:46 Duoneb INHALATION 3 ml QID.RESPIRATORY P RN Administration SOB/WHEEZING Atorvastatin Calci um 20 mg 07/05/20 09:00 07/05/20 09:07 Lipitor PO 20 mg DAILY BANDAR Administration Carvedilol 12.5 mg 07/04/20 18:00 07/06/20 08:14 Coreg PO 12.5 mg BID BANDAR Administration Docusate Sodium 100 mg 07/04/20 09:00 07/05/20 16:28 Colace PO Not Given BID BANDAR Enoxaparin Sodium 100 mg 07/04/20 09:30 07/05/20 21:01 Lovenox SUBCUT 100 mg Q12H BANDAR Administration Sodium Chloride 1,000 mls @ 50 ml s/hr 07/04/20 09:00 07/06/20 03:28 Sodium Chloride 0.9% IV 50 mls/hr .Q20H BANDAR Administration Clindamycin HCl/De xtrose 600 mg in 50 mls @ 100 mls/hr 07/04/20 09:30 07/06/20 08:14 Cleocin IV 100 mls/hr Q8H BANDAR Administration Protocol Lactobacillus Acid ophilus 1 tab 07/04/20 09:00 07/05/20 21:01 Floranex PO 1 tab QID BANDAR Administration Pantoprazole Sod[place] m 40 mg 07/05/20 09:00 07/05/20 09:07 Protonix PO 40 mg DAILY BANDAR Administration Fluticasone/Salmet amos 1 puff 07/04/20 20:00 07/06/20 07:46 Advair Diskus 50 0-50 INHALATION 1 puff BID.RESPIRATORY S CH Administration PFSH Anesthesia PFSH: Medical History Atrial fibrillation COPD (chronic obstructive pulmonary disease) H/O malignant neoplasm of skin Hypertension Surgical History H/O circumcision H/O colonoscopy 5 yrs ago H/O esophagogastroduodenoscopy 1993 Hx of excision of mass (06/12/20) Right leg Family History Other CAD (coronary artery disease) Diabetes Denies family history of Anesthesia complication Bleeding disorder Cancer Social History Smoking and tobacco status: former smoker Alcohol intake: never Household members: spouse Marital status: Current occupational status: retired History of recent travel: No Data Anesthesia CBC & Chem 7: 07/06/20 05:54 07/06/20 05:54 Other Labs: Laboratory Results - last 48 hr 07/05/20 07/05/20 07/06/20 04:48 04:48 05:54 WBC 8.1 7.1 RBC 4.12 4.11 Hgb 12.4 12.1 Hct 38.0 L 37.4 L MCV 92.2 91.0 MCH 30.1 29.4 MCHC 32.6 32.4 RDW 14.6 14.6 Plt Count 103 L 102 L MPV 12.6 H 11.1 H Neut % (Auto) 69.3 55.8 Lymph % (Auto) 19.7 25.7 Glades % (Auto) 9.4 13.5 Eos % (Auto) 0.7 4.0 Baso % (Auto) 0.4 0.6 Neut # (Auto) 5.63 3.94 Lymph # (Auto) 1.6 1.8 Glades # (Auto) 0.8 1.0 H Eos # (Auto) 0.1 0.3 Baso # (Auto) 0.0 0.0 Nucleated RBC % (auto) 0 0 Nucleated RBCs # 0.0 0.0 Sodium 135 L Potassium 3.7 Chloride 102 Carbon Dioxide 22 Anion Gap 14.7 BUN 13 Creatinine 1.0 GFR Calculation Not Reportable Glucose 99 Calculated Osmolality 280 L Calcium 8.0 L Total Bilirubin 2.0 H AST 17 ALT 9 Alkaline Phosphatase 40 Total Protein 6.5 L Albumin 3.6 Globulin 2.9 07/06/20 05:54 WBC RBC Hgb Hct MCV MCH MCHC RDW Plt Count MPV Neut % (Auto) Lymph % (Auto) Glades % (Auto) Eos % (Auto) Baso % (Auto) Neut # (Auto) Lymph # (Auto) Glades # (Auto) Eos # (Auto) Baso # (Auto) Nucleated RBC % (auto) Nucleated RBCs # Sodium 137 Potassium 4.1 Chloride 104 Carbon Dioxide 24 Anion Gap 13.1 BUN 13 Creatinine 1.1 GFR Calculation Not Reportable Glucose 109 Calculated Osmolality 285 Calcium 8.3 L Total Bilirubin 1.1 AST 19 ALT 12 Alkaline Phosphatase 44 Total Protein 6.8 Albumin 3.6 Globulin 3.2 Micro: Microbiology 07/04/20 05:00 Blood Culture - Preliminary Blood Gram positive cocci 07/04/20 05:05 Blood Culture - Preliminary Blood NEGATIVE TO DATE Cardiac Studies: No Data to Display
[2020-07-06] MEDS: sodium chloride 0.9% 1,000 ML 30 ML IV (09:28)
--- NOTE | 2020-07-06 09:29 | P.PN_ITS ---
Subjective Subjective: Interval history: Patient awake sitting in the chair at time of exam. He reports that he has having continued discomfort in the right leg. Continued thick drainage. Denies any other concerns at this time. Vitals/I&O/Wt Last Vital Signs Temp 99.3 F 07/06/20 09:24 Pulse 78 07/06/20 09:24 Resp 18 07/06/20 09:24 BP 126/72 07/06/20 09:24 Pulse Ox 95 07/06/20 09:24 07/05/20 07/06/20 07/06/20 22:59 06:59 14:59 Intake Total 550 / 1740 1050 / 2790 300 / 300 Output Total 2055 / 2655 575 / 3230 600 / 600 Balance -1505 / -915 475 / -440 -300 / -300 Weight last 48 hrs Weight 114.39 kg Weight 111.13 kg Data : 07/06/20 05:54 07/06/20 05:54 Micro: Microbiology 07/04/20 05:00 Blood Culture - Preliminary Blood Gram positive cocci 07/04/20 05:05 Blood Culture - Preliminary Blood NEGATIVE TO DATE A&P Assessment and plan (1) Cellulitis: Cellulitis of the right lower extremity Excision of angiolipoma performed on 06/28/[address] Boyd. On antibiotic with clindamycin. Taken for debridement with Dr. Jones because of continuous purulent drainage. We will follow-up culture results from the OR. Status: Acute (2) Atrial fibrillation: Continue home Coreg 12.5 mg twice daily Patient is on Xarelto, will transition to Lovenox while hospitalized in case he requires further surgical debridement Status: Acute (3) COPD (chronic obstructive pulmonary disease): Without acute exacerbation. Patient has bilateral wheezing at baseline. Continue home inhalers Oxygen per protocol and respiratory therapy to assess and treat Status: Acute (4) Hypertension: Continue home Coreg Status: Acute (5) Gram-positive bacteremia: Blood cultures from admission positive for GPC. Can be contaminant. Given the fact that patient has an abscess cannot rule out bacteremia. For now continue the same antibiotics. Repeat blood cultures. MRSA swab. Status: Acute Additional A&P Information Concern for peripheral vascular disease: RYAN ordered to further evaluate the right lower extremity and results awaited. Diet: Cardiac DVT prophylaxis: Patient is on Xarelto at home this is on hold, and he remains on treatment dose Lovenox while inpatient in case she required surgical intervention CODE STATUS: Do Not Resuscitate/DNI, this was discussed with patient on admission Attestations Medical Necessity Statement*: Cellulitis, gram-positive bacteremia Time Spent in Patient Care: Greater than 35 minutes (>than 50% of time spent in counselling and/or direct pt care on unit) . Coding Level of Care Code Acute Operations Section Manager for [facility] Diagnoses Cellulitis L03.90 Atrial fibrillation I48.91 COPD (chronic obstructive pulmonary disease) J44.9 Hypertension I10 Gram-positive bacteremia R78.81
[2020-07-06] MEDS: lidocaine 2% INJ 20 mL INJECTION (09:59)
--- NOTE | 2020-07-06 10:01 | P.OP_ITS ---
Operative Report Date of procedure: July 06, 2020 Pre-op Diagnosis: Right leg abscess Post-op diagnosis: same Post-op Findings: Necrotic tissues involving subcutaneous layer Procedure Done: Incision and drainage of right leg abscess with sharp debridement of the abscess cavity Implants: Packing with half-inch Nu Gauze impregnated the lidocaine 2% Specimens removed/disposition: Tissues for cultures and sensitivity Surgeon: Rey Jones Resident Surgeon: career guidance technician Alvarez Circulating nurse Ken Montoya Anesthesia: MAC (Cheri Morrell) Estimated blood loss (mL): 5 Condition: stable Disposition: floor Brief History: This is a pleasant 79-year-old gentleman undergone uneventful e xcision of right lower extremity mass about 2 weeks ago which turned to be a subcutaneous Angilipoma then later on developed leg swelling and redness associated with fever with concern about purulent discharge from the site of the previous incision.General surgery was consulted for further evaluation was found to have right leg abscess. Patient was evaluated history was obtained and physical examination was done and patient was counseled for I&D of right leg abscess and he did agree to proceed accordingly. Informed consent per chart Procedure: After identifying the patient holding area, the right lower extremity was marked before the procedure by myself, patient was then taken to the operative suite, was placed in supine position, IV antibiotics were given per protocol,IV propofol was infused by the anesthesia provider, prep and drape of the wound region was done under the usual sterile technique. Time-out was done verifying the patient's name/date of /planned procedure and destination after the procedure, all were in agreement. Started by excising the unhealthy necrotic tissues of the wound there was some purulent drainage and previous sutures were all excised and drainage was obtained as there was an undermining towards the North part of the wound and so incision was extended cephalad sharp debridement was obtained all the way to the subcutaneous layer. Wound measurement ; Pre Debridement measurements; pre-debridement measurements 3 x 0.6 x 0.8 cm Post-debridement measurement; post debridement measurements 4 x 1 x 1.[address] to the healthier subcutaneous level Tissues were sent for cultures and sensitivities Copious irrigation of the wound was done with warm saline, followed by appropriate hemostasis, packing of the wound was done with half inch Nu Gauze impregnated and lidocaine 2%, followed by 4 x 4, ABDs, Kerlix. Patient tolerated the procedure well,count of instruments, needles and sponges were completed at the end of the procedure. Patient was then taken to the recovery area in stable condition. I was present for the whole entire procedure
[2020-07-06 10:15] LABS: Procalcitonin 0.32 ng/mL (0-0.5)
--- NOTE | 2020-07-06 10:20 | PM.PACU ---
PACU note Post-Anesthesia Exam: awake and vital signs stable Disposition: back to floor
[2020-07-06] MEDS: lactobacillus 1 Tablet 1 TAB PO ×3 (12:27→20:46)
--- NOTE | 2020-07-06 14:44 | PC.CHAP ---
Pastoral Care Encounter/Spiritual Assessment Type of Contact [] Declined director of diversity and inclusion visit [] Patient/Family/Request visit [] Outpatient visit [] Follow-up visit [] Physician referral [] Code/Alert [] Routine visit [] Staff referral [] Actively dying [X] Patient sleeping [] Family support [] [] Out of room [] Palliative care [] [] Receiving care in room [] Pre-surgical visit [] Trauma [] Long length of stay [] ICU visit [] Other: Relational/Emotional Strength [] Patient feels connected with others/family/visitors/staff [] Distress [] Loneliness/isolation [] Abandonment Spirituality of Patient [] Person of Deanna [] Attends Protestant of their Deanna [] Believes in Prayer [] Reads Bible or Gnosticist materials [] There are Spiritual issues to be addressed Chemical Process Equipment Operator Interventions [] Prayer [] Active listening [] Non-anxious presence [] Spiritual/emotional support [] Crisis/trauma care [] Spiritual counseling [] Bereavement support [] Provided bereavement packet [] Provided Bible/devotional materials [] Provided toy/stuffed animal, coloring book to patient or family member [] Provided Communion [] Anointing/Pigeon [] Salvation [] Completed spiritual assessment [] Other: Impact on Illness or Injury [] Angry [] Fearful [] Anxious [] Often cries [] Exhaustion [] Unable to work [] Unable to attend yarsanism [] Unable to walk/stand [] Unable to read [] Unable to drive [] Unable to eat/drink [] Unable to sleep [] Unable to be with family [] Patient intubated [] Other: Summary Time spent with patient
[2020-07-06] MEDS: docusate sodium 100 mg Capsule PO (16:51)
--- NOTE | 2020-07-06 18:15 | PC.NURSE ---
SHIFT SUMMARY PATIENT HAS DONE WELL TODAY. NO COMPLAINTS OF PAIN. SURGICAL DRESSING C/D/I. GOOD URINE OUTPUT. GOOD PO INTAKE. CONTINUE TO MONITOR.
[2020-07-06] MEDS: enoxaparin 100 mg/mL Syringe SUBCUT (20:46)
[2020-07-07] VITALS (10 sets, daily range): BP systolic 86–156; BP diastolic 64–84; PULSE 82–100; RESP 17–20; TEMP 36.4–37.4; O2SAT 90–96; BMI 30.4
[2020-07-07] MEDS: clindamycin 600 MG/50 ML PREMIX 100 MG IV ×2 (00:51→08:09)
[2020-07-07 05:51] LABS: Basophils % 0.1 %; Eosinophils # 0.3 10^3/uL (0.0-0.8); Eosinophils % 3.1 %; Hematocrit 40.1 % (42.0-52.0); Hemoglobin 12.8 g/dL (11.7-16.6); Lymphocytes # 1.4 10^3/uL (0.8-4.8); Lymphocytes % 17.3 %; Mean Corpuscular HGB Conc 31.9 g/dL (30.0-36.0); Mean Corpuscular Hemoglobin 29.2 pg (28.0-34.0); Mean Corpuscular Volume 91.3 fL (80-94); Mean Platelet Volume 11.2 fL (7.4-10.4); Neutrophils # 5.42 10^3/uL (1.8-7.7); Neutrophils % 66.9 %; Nucleated Red Blood Cells % 0 %; Platelet Count 120 10^3/cmm (130-400); Red Blood Count 4.39 10^6/uL (4.1-5.3); Red Cell Distribution Width 14.5 % (12.1-15.1); White Blood Count 8.1 10^3/uL (4.0-10.0)
[2020-07-07 06:38] LABS: Alanine Aminotransferase 16 U/L (0-41); Albumin Level 3.8 g/dL (3.5-5.2); Alkaline Phosphatase 57 IU/L (40-130); Anion Gap 16.2 (5-19); Aspartate Amino Transferase 23 U/L (0-40); Blood Urea Nitrogen 10 mg/dL (8-23); Calcium 9.1 mg/dL (8.5-10.5); Carbon Dioxide 23 mmol/L (22-29); Chloride 100 mmol/L (98-107); Globulin 3.4 g/dL (1.3-4.6); Glucose 111 mg/dL (65-115); Osmolality Calculated 280 mOsm/kg (285-295); Potassium 4.2 mmol/L (3.5-5.1); Sodium 135 mmol/L (136-145); Total Bilirubin 1.3 mg/dL (0.15-1.2); Total Protein 7.2 g/dL (6.6-8.7)
--- NOTE | 2020-07-07 07:08 | ANE.PACU2 ---
Inpatient post-anesthesia follow up: Airway intact: Yes Vital signs: Temperature 98.8 F Pulse Rate [Monito r] 100 Pulse Rate 98 Respiratory Rate 18 Blood Pressure [Ri ght Arm] 131/76 Blood Pressure 157/56 Pulse Oximetry 94 Oxygen Delivery Me thod Room Air Oxygen Flow Rate 4 Fraction of Inspir ed Oxygen Hydration adequate: Yes Nausea and vomiting: No Pain level: 1 Mental status: Baseline
[2020-07-07] MEDS: atorvastatin 40 mg Tablet 20 MG PO (08:08)
[2020-07-07] MEDS: docusate sodium 100 mg Capsule PO ×2 (08:08→17:16)
[2020-07-07] MEDS: lactobacillus 1 Tablet 1 TAB PO ×4 (08:08→20:48)
--- NOTE | 2020-07-07 08:08 | P.PN_ITS ---
Subjective Subjective: Interval history: Patient overall doing well and undergone incision and drainage of right leg abscess and cultures were sent. No acute events overnight Vitals/I&O/Wt Last Vital Signs Temp 99.1 F 07/07/20 07:54 Pulse 88 07/07/20 07:54 Resp 18 07/07/20 07:54 BP 120/74 07/07/20 07:54 Pulse Ox 94 07/07/20 07:54 07/06/20 07/07/20 07/07/20 22:59 06:59 14:59 Intake Total 410 / 880 Output Total 1000 / 2305 1500 / 3805 Balance -590 / -1425 -1500 / -2925 Weight last 48 hrs Weight 243 lb 9.6 oz Weight 252 lb 3 oz Physical Exam Narrative: EXAM NARRATIVE: Patient is conscious alert oriented X3 BMI 31 Head and neck examination PERRLA no masses no cervical lymphadenopathy no jaundi ce Right leg cellulitis is much less cavity is clean with no pus or necrotic tissues. Packing was removed and repacked by me bed side with wet-to-dry Nu Gauze followed by Toro. Data : 07/07/20 05:39 07/07/20 05:39 Micro: Microbiology 07/04/20 05:05 Blood Culture - Preliminary Blood Gram positive cocci 07/04/20 05:00 Blood Culture - Preliminary Blood Coagulase negativ staphylococc 07/06/20 09:51 Gram Stain - Final Leg - Right 07/06/20 17:07 Blood Culture - Preliminary Blood SPECIMEN COLLECTED 07/06/20 17:04 Blood Culture - Preliminary Blood SPECIMEN COLLECTED A&P Assessment and plan (1) Leg abscess: Condition resolved Upon discharge patient can follow-up with me at the wound care center due to patient's wound complexity and will require further surgical care. I would recommend to have home health set up for the patient Patient has questions with regard to his atrial fibrillation. Diuretics and his leads on the chest. I will defer those questions to Dr. Raymundo Plan of care: 1-nutrition optimization 2-wound care in the form of daily packing with wet-to-dry Nu Gauze followed by Toro 3-management of medical comorbidities accordingly 4-physical therapy consultation when needed 5-assurance and education All questions have been answered and all concerns have been addressed to patient's satisfaction. From surgical standpoint of view patient can be discharged and follow-up with me in the wound care center and can resume his blood thinners. Status: Resolved Attestations Medical Necessity Statement*: Continue inpatient admission per medical optimization and local wound care Time Spent in Patient Care: (>than 50% of time spent in counselling and/or direct pt care on unit) . Coding Level of Care Code Acute Dispatch Officer for [facility] Millie Diagnoses Leg abscess L02.419
[2020-07-07] MEDS: carvedilol 12.5 mg Tablet PO ×2 (08:09→17:16)
[2020-07-07] MEDS: acetaminophen 325 mg Tablet 650 MG PO ×2 (08:09→17:16)
[2020-07-07] MEDS: pantoprazole DR 40 mg Tablet PO (08:09)
[2020-07-07] MEDS: ipratropium-albuterol 3 mL Neb INHALATION ×2 (09:52→20:57)
[2020-07-07] MEDS: HYDROcodone-acetaminophen 5-325 mg Tablet 1 TAB PO ×2 (12:04→20:48)
[2020-07-07] MEDS: sodium chloride 0.9% 1,000 ML 50 ML IV (13:50)
--- NOTE | 2020-07-07 14:11 | PM.PN ---
Subjective Subjective: Interval history: No acute event overnight. Patient underwent debridement yesterday. Tolerated the procedure well. Culture was sent from the OR. Patient has remained hemodynamically stable and afebrile. Complaining of mild back pain. Denies of any nausea, vomiting, headache. Vitals/I&O/Wt Last Vital Signs Temp 97.9 F 07/07/20 11:39 Pulse 84 07/07/20 11:39 Resp 20 H 07/07/20 11:39 BP 122/76 07/07/20 11:39 Pulse Ox 95 07/07/20 11:39 07/06/20 07/07/20 07/07/20 22:59 06:59 14:59 Intake Total 410 / 880 50 / 930 1600 / 1600 Output Total 1000 / 2305 1500 / 3805 300 / 300 Balance -590 / -1425 -1450 / -2875 1300 / 1300 Weight last 48 hrs Weight 110.495 kg Weight 114.39 kg Physical Exam Const: COMMON NORMALS: patient oriented x3 and alert GENERAL APPEARANCE: cooperative ORIENTATION/CONSCIOUSNESS: Yes awake, Yes oriented to person, Yes oriented to place and Yes oriented to time HENMT: COMMON NORMALS: normocephalic and atraumatic HEAD & SCALP: normocephalic and atraumatic Eye: COMMON NORMALS: Equal, round and reactive pupils present PUPIL: Yes Equal, round and reactive pupils present Neck/C-Spine: COMMON NORMALS: supple GENERAL: Yes normal visual inspection Resp: COMMON NORMALS: normal respiratory effort and clear to auscultation bilaterally EFFORT & INSPECTION: Yes able to speak in complete sentences AUSCULTATION: clear to auscultation bilaterally, no rhonchi and no wheezes OTHER: prolonged expiratory phase, expiratory wheezing bilaterally, in no respiratory distress, respirations even and unlabored Cardio: COMMON NORMALS: regular rate, regular rhythm and No murmurs present (Cardio) RATE: regular rate RHYTHM: regular rhythm GI: COMMON NORMALS: Soft to palpation and non-tender INSPECTION: No abdominal distension AUSCULTATION: Yes normoactive bowel sounds PALPATION: Yes Soft to palpation Extremity: COMMON NORMALS: no calf tenderness NARRATIVE EXTREMITY EXAM: Patient has erythema in the right lower extremity with central eschar and drainage Neuro: COMMON NORMALS: patient oriented x3, CN's II-XII intact bilaterally, moves all extremities and no focal motor deficits SENSORIUM/ORIENTATION: Yes alert, Yes oriented to person, Yes oriented to place and Yes oriented to time SPEECH: speech normal Psych: COMMON NORMALS: mental status grossly normal and cooperative Skin: NARRATIVE SKIN EXAM: Wound surgically dressed, no drainage, clean dressing. OTHER: Erythema over the right anterior chávez with central eschar with drainage Data : 07/07/20 05:39 07/07/20 05:39 Micro: Microbiology 07/06/20 09:51 Anaerobic Culture - Preliminary Leg - Right 07/06/20 11:15 MRSA Culture - Final Nose 07/06/20 09:51 Gram Stain - Final Leg - Right Tissue Culture - Preliminary 07/04/20 05:05 Blood Culture - Preliminary Blood Coagulase negativ staphylococc 07/04/20 05:00 Blood Culture - Preliminary Blood Coagulase negativ staphylococc 07/06/20 17:07 Blood Culture - Preliminary Blood SPECIMEN COLLECTED 07/06/20 17:04 Blood Culture - Preliminary Blood SPECIMEN COLLECTED A&P Assessment and plan (1) Gram-positive bacteremia: Blood cultures from admission positive for GPC. 2 bottles positive. Can be contaminant but cannot rule out true bacteremia because patient has an oozing ulcer. Repeat cultures sent yesterday. MRSA swab was negative. Change antibiotics to vancomycin from clindamycin. Status: Acute (2) Cellulitis: Cellulitis of the right lower extremity Excision of angiolipoma performed on 06/28/[address] Boyd. Post debridement with Dr. Jones on July 06. Dressing change as per Dr. Jones. Weight bearing status as per Dr. Jones. Physical therapy as per Dr. Jones. Arterial venous studies have been done but results are awaiting. Status: Acute (3) Atrial fibrillation: Continue home Coreg 12.5 mg twice daily Patient is on Xarelto. Transitioned over to Lovenox during hospitalization for procedure yesterday. Can transition back to Xarelto tomorrow. We will continue Lovenox for today and monitor hemoglobin. Status: Acute (4) COPD (chronic obstructive pulmonary disease): Without acute exacerbation. Patient has bilateral wheezing at baseline. Continue home inhalers Oxygen per protocol and respiratory therapy to assess and treat. Home O2 evaluation on discharge. Oxygen supplementation keeping saturation over 90%. Status: Acute (5) Hypertension: Goal blood pressure less than 140/90 mmHg. Continue home Coreg Status: Acute Additional A&P Information Concern for peripheral vascular disease: RYAN ordered to further evaluate the right lower extremity and results awaited. Diet: Cardiac DVT prophylaxis: Patient is on Xarelto at home this is on hold, and he remains on treatment dose Lovenox while inpatient in case she required surgical intervention CODE STATUS: Do Not Resuscitate/DNI, this was discussed with patient on admission Attestations Medical Necessity Statement*: GPC bacteremia, cellulitis Time Spent in Patient Care: Greater than 35 minutes (>than 50% of time spent in counselling and/or direct pt care on unit). Coding Level of Care Code Acute Home Care Assistant for g Fwd Exam Comprehensive Diagnoses Gram-positive bacteremia R78.81 Cellulitis L03.90 Atrial fibrillation I48.91 COPD (chronic obstructive pulmonary disease) J44.9 Hypertension I10
[2020-07-08] VITALS (9 sets, daily range): BP systolic 112–157; BP diastolic 56–79; PULSE 80–98; RESP 16–18; TEMP 36.6–37.3; O2SAT 93–96
[2020-07-08] MEDS: ipratropium-albuterol 3 mL Neb INHALATION ×2 (02:30→08:45)
[2020-07-08 04:18] LABS: Basophils % 0.5 %; Eosinophils # 0.4 10^3/uL (0.0-0.8); Eosinophils % 5.7 %; Hematocrit 42.2 % (42.0-52.0); Hemoglobin 13.4 g/dL (11.7-16.6); Lymphocytes % 29.9 %; Mean Corpuscular HGB Conc 31.8 g/dL (30.0-36.0); Mean Corpuscular Hemoglobin 29.3 pg (28.0-34.0); Mean Corpuscular Volume 92.1 fL (80-94); Mean Platelet Volume 10.9 fL (7.4-10.4); Monocytes # 0.8 10^3/uL (0.2-0.9); Monocytes % 11.9 %; Neutrophils # 3.35 10^3/uL (1.8-7.7); Neutrophils % 51.2 %; Nucleated Red Blood Cells % 0 %; Platelet Count 140 10^3/cmm (130-400); Red Blood Count 4.58 10^6/uL (4.1-5.3); Red Cell Distribution Width 14.4 % (12.1-15.1); White Blood Count 6.5 10^3/uL (4.0-10.0)
[2020-07-08 04:37] LABS: Alanine Aminotransferase 20 U/L (0-41); Albumin Level 3.9 g/dL (3.5-5.2); Alkaline Phosphatase 60 IU/L (40-130); Anion Gap 14.6 (5-19); Aspartate Amino Transferase 28 U/L (0-40); Blood Urea Nitrogen 9 mg/dL (8-23); Calcium 9.5 mg/dL (8.5-10.5); Carbon Dioxide 24 mmol/L (22-29); Chloride 102 mmol/L (98-107); Glucose 116 mg/dL (65-115); Osmolality Calculated 282 mOsm/kg (285-295); Potassium 4.6 mmol/L (3.5-5.1); Sodium 136 mmol/L (136-145); Total Bilirubin 1.4 mg/dL (0.15-1.2); Total Protein 7.9 g/dL (6.6-8.7)
--- NOTE | 2020-07-08 07:37 | PC.RESP ---
Pt is currently enrolled and compliant with Pulmonary Rehab.
[2020-07-08] MEDS: rivaroxaban 10 mg Tablet 20 MG PO (08:51)
[2020-07-08] MEDS: lactobacillus 1 Tablet 1 TAB PO ×2 (08:52→12:03)
[2020-07-08] MEDS: docusate sodium 100 mg Capsule PO (08:52)
[2020-07-08] MEDS: atorvastatin 40 mg Tablet 20 MG PO (08:52)
[2020-07-08] MEDS: pantoprazole DR 40 mg Tablet PO (08:52)
[2020-07-08] MEDS: carvedilol 12.5 mg Tablet PO (08:53)
[2020-07-08] MEDS: acetaminophen 325 mg Tablet 650 MG PO (08:53)
--- NOTE | 2020-07-08 09:48 | XRR_ITS ---
PROCEDURE INFORMATION: Exam: XR Lumbosacral Spine, 2 or 3 Views Exam date and time: 07/08/2020 10:54 AM Age: 79 years old Clinical indication: Low back pain; Additional info: Lower back pain TECHNIQUE: Imaging protocol: XR of the lumbosacral spine, 2 or 3 views. COMPARISON: No relevant prior studies available. FINDINGS: Vertebrae: Minimal levoscoliosis, multiple osteophytes. No acute compression fracture. Old L1 compression fracture. Degenerative facet change at L5-S1. Soft tissues: Vascular calcifications. XR/XR lumbar spine 2-3V* 03105 IMPRESSION: No acute findings.
[2020-07-08] MEDS: cyclobenzaprine 10 mg Tablet 5 MG PO (12:09)
[2020-07-08] MEDS: sodium chloride 0.9% 1,000 ML 50 ML IV (12:10)
--- NOTE | 2020-07-08 12:25 | PC.SOCIAL ---
IMM Updated Page 2 of IMM updated and given to patient. Initialed, dated, and timed and placed back in chart.
--- NOTE | 2020-07-08 14:33 | PM.DCS ---
Discharge Providers Date of Admission: 07/05/20 11:40 Date of Discharge: July 08, 2020 Attending Provider at Admission: Monica Beauchamp DO Attending Provider at Discharge: Chava Eller MD Primary Care Provider: Yuan Odonnell DO Diagnoses at Discharge Discharge Diagnosis (1) Gram-positive bacteremia: Status: Chronic (2) Cellulitis: Status: Acute (3) Atrial fibrillation: Status: Chronic (4) COPD (chronic obstructive pulmonary disease): Status: Chronic (5) Hypertension: Status: Chronic Reason for Visit Reason for Visit: right leg pain Hospital Course Hospital Course: 79yo M with past history of COPD, atrial fibrillation, chronic anticoagulation, sleep apnea on CPAP and hypertension admitted for R LE cellulitis. Blood cultures from admission growing 2 bottles coag negative staph. Likely contaminant. Repeat blood culture was negative. Patient had no signs of systemic infection suggestive of bacteremia.For cellulitis which was oozing purulent stuff. He was taken to the OR for debridement by Dr. Jones. Cultures have been sent. Repeat cultures have remained negative. He was on clindamycin which was switched over to vancomycin because of the blood cultures on discharge he was transitioned to p.o. levofloxacin and Augmentin. Patient is being discharged in stable condition. He will follow-up with Dr. Jones as an outpatient. Physical Exam Narrative: EXAM NARRATIVE: Const COMMON NORMALS: patient oriented x3 and alert GENERAL APPEARANCE: cooperative ORIENTATION/CONSCIOUSNESS: Yes awake, Yes oriented to person, Yes oriented to place and Yes oriented to time [facility] COMMON NORMALS: normocephalic and atraumatic HEAD & SCALP: normocephalic and atraumatic Eye COMMON NORMALS: Equal, round and reactive pupils present PUPIL: Yes Equal, round and reactive pupils present Neck/C-Spine COMMON NORMALS: supple GENERAL: Yes normal visual inspection Resp COMMON NORMALS: normal respiratory effort and clear to auscultation bilaterally EFFORT & INSPECTION: Yes able to speak in complete sentences AUSCULTATION: clear to auscultation bilaterally, no rhonchi and no wheezes OTHER: prolonged expiratory phase, expiratory wheezing bilaterally, in no respiratory distress, respirations even and unlabored Cardio COMMON NORMALS: regular rate, regular rhythm and No murmurs present (Cardio) RATE: regular rate RHYTHM: regular rhythm GI COMMON NORMALS: Soft to palpation and non-tender INSPECTION: No abdominal distension AUSCULTATION: Yes normoactive bowel sounds PALPATION: Yes Soft to palpation Extremity COMMON NORMALS: no calf tenderness NARRATIVE EXTREMITY EXAM: Patient has erythema in the right lower extremity with central eschar and drainage Neuro COMMON NORMALS: patient oriented x3, CN's II-XII intact bilaterally, moves all extremities and no focal motor deficits SENSORIUM/ORIENTATION: Yes alert, Yes oriented to person, Yes oriented to place and Yes oriented to time SPEECH: speech normal Psych COMMON NORMALS: mental status grossly normal and cooperative Skin NARRATIVE SKIN EXAM: Wound surgically dressed, no drainage, clean dressing. OTHER: Erythema over the right anterior chávez with central eschar with drainage Discharge Data Data Completed and Pending: Completed Studies During Hospitalization Category Date Time Status CT head wo/w con 77807 Routine Cat Scan 07/04/20 18:08 Completed XR chest 1V ortiz ble 30601 Urgent Exams 07/04/20 04:42 Completed XR lumbar spine 2 -3V* 32369 Urgent Exams 07/08/20 09:48 Completed XR tibia fibula R T 2V 17069 Stat Exams 07/04/20 04:42 [place] [address] Routin e Ultrasound 07/05/20 Completed US arterial duple x lower extremity RT [CV arterial Ultrasound 07/05/20 09:19 Completed duplex LE RT 9392 6] Routine Pending at discharge Category Date Time Status Anaerobic Culture Routine Lab 07/06/20 09:51 Results Blood Culture Sta t Lab 07/04/20 05:05 Results Blood Culture Sta t Lab 07/06/20 17:07 Results Tissue Culture an d Gram Stain Routi ne Lab 07/06/20 09:51 Results Vancomycin Trough Routine Lab 07/08/20 14:02 Received Labs from last 24 hours 07/08/20 07/08/20 07/08/20 14:02 04:02 04:02 WBC 6.5 RBC 4.58 Hgb 13.4 Hct 42.2 MCV 92.1 MCH 29.3 MCHC 31.8 RDW 14.4 Plt Count 140 MPV 10.9 H Neut % (Auto) 51.2 Lymph % (Auto) 29.9 [place] % (Auto) 11.9 Eos % (Auto) 5.7 Baso % (Auto) 0.5 Neut # (Auto) 3.35 Lymph # (Auto) 2.0 [place] # (Auto) 0.8 Eos # (Auto) 0.4 Baso # (Auto) 0.0 Nucleated RBC % (a uto) 0 Nucleated RBCs # 0.0 Sodium 136 Potassium 4.6 Chloride 102 Carbon Dioxide 24 Anion Gap 14.6 BUN 9 Creatinine 0.9 GFR Calculation Not Reportable Glucose 116 H Calculated Osmolal ity 282 L Calcium 9.5 Total Bilirubin 1.4 H AST 28 ALT 20 Alkaline Phosphata se 60 Total Protein 7.9 Albumin 3.9 Globulin 4.0 Vancomycin Trough Pending Vitals: Last Vital Signs Temp 97.8 F 07/08/20 11:53 Pulse 90 07/08/20 11:53 Resp 18 07/08/20 11:53 BP 134/77 07/08/20 11:53 Pulse Ox 93 07/08/20 11:53 Discharge Plan Discharge Patient Disposition: Home Condition: Stable Prescriptions: New levofloxacin 500 mg tablet 500 mg PO DAILY 7 Days RF: 0 [place] 5-325 mg tablet 1 tab PO Q4H PRN (Reason: pain) Qty: 14 RF: 0 cyclobenzaprine 5 mg tablet 5 mg PO BID PRN (Reason: muscle spasm) Qty: 14 RF: 0 Augmentin 500-125 mg tablet 1 tab PO Q12H Qty: 14 RF: 0 Continued albuterol sulfate 90 mcg/actuation HFA aerosol inhaler 2 puff INHALATION Q4H PRN (Reason: Shortness Of Breath) RF: 0 Xarelto 20 mg tablet 20 mg PO QPM RF: 0 Hold Instructions: Resume on 06/15/20. pravastatin 40 mg tablet 40 mg PO DAILY RF: 0 omeprazole 20 mg capsule,delayed release(DR/EC) 20 mg PO DAILY RF: 0 budesonide-formoterol [Symbicort] 160-4.5 mcg/actuation HFA aerosol inhaler 2 puff INHALATION BID RF: 0 carvedilol 25 mg tablet 25 mg PO BID RF: 0 ipratropium-albuterol 0.5 mg-3 mg(2.5 mg base)/3 mL Solution For Nebulization 3 ml INHALATION QID PRN (Reason: UNKNOWN) RF: 0 Watersmeet 5-325 mg Tablet 1 tab PO Q6H PRN (Reason: Pain) RF: 0 Combivent Respimat 20-100 mcg/actuation Mist 1 puff INHALATION QID PRN (Reason: Shortness Of Breath) RF: 0 Glucosamine 1 tab PO DAILY RF: 0 Discharge Orders: Discharge Order (Routine); Ordered 07/08/20 Ordered By: David Guardado Other Ambulatory Orders: DME: Walker (Order) Location: None Selected Ordered By: David Guardado Referrals: [facility] [Outside] Rey Jones MD [Physician] - 07/12/20 10:00 am (Follow-up with Dr. Jones at [facility] center at first available appointment.You have an appointment at [facility] on July 12 at 10:00am. [phone]) Yuan Odonnell DO [Primary Care Provider] - 07/15/20 1:00 pm (You have a phone appointment on July 15 at 1:00pm) Discharge Diet: Usual diet Discharge Activity: Resume usual activity Patient Instructions: Hydrocodone/Acetaminophen (By mouth), Cyclobenzaprine (By mouth), Amoxicillin/Clavulanate Potassium (By mouth), Levofloxacin (By mouth) Discharge Date/Time: 07/08/20 17:00 Discharge Attestations Time Spent in Discharge Care*: greater than 30 min Specific Discharge Activities: Specific discharge activities: educating patient, educating and/or supporting family/caregiver, discussing with pcp/other providers, discussing with housing case manager/social workers/dc planners and documenting/other paperwork Status at Discharge: Cognitive status at discharge: cognitively intact, Behavioral status at discharge: cooperative, Functional status at discharge: independent ambulation Overall status at discharge: patient is back to baseline Quality Metrics Clinical Quality Measures During this hospital stay, did patient experience: None Coding Level of Care Code Acute Broadcasting Equipment Mechanic for [facility] Fwd Diagnoses Gram-positive bacteremia R78.81 Cellulitis L03.90 Atrial fibrillation I48.91 COPD (chronic obstructive pulmonary disease) J44.9 Hypertension I10
[2020-07-08 14:44] LABS: Vancomycin Trough 11.9 ug/mL (10-15)
== END 2020-07-08 17:00 | disposition home or self-care (01) | DRG 603 ==
LOC: ER 06:53 → MEDSURG 07:57
PROVIDERS: Emergency Medicine; Surgery; Admitting Provider Family Medicine; PCP Emergency Medicine Emergency Medical Services; Visit Provider Student in an Organized Health Care Education/Training Program
PROC: 0Y9H0ZZ Drainage of Right Lower Leg, Open Approach (ICD-10-PCS; principal; 2020-07-06 09:30)
DX: L03.115 Cellulitis of right lower limb (principal); R78.81 Bacteremia; I48.91 Unspecified atrial fibrillation; J44.9 Chronic obstructive pulmonary disease, unspecified; L02.419 Cutaneous abscess of limb, unspecified; Z79.01 Long term (current) use of anticoagulants; I10 Essential (primary) hypertension; G47.33 Obstructive sleep apnea (adult) (pediatric); Z85.828 Personal history of other malignant neoplasm of skin; Z87.891 Personal history of nicotine dependence
CPT/HCPCS: 12345; 36415; 70470; 71045; 72100; 73590; 80053; 80202; 83605; 83880; 84145; 85025; 87040; 87070; 87075; 87077; 87106; 87176; 87186; 87205; 87426; 87641; 93926; 93971; 94640; 94664; 96372; 97116; 97161; 99283; G0378; J1650; J2250; J2704; J3010; J3370; J3490; J7030; J7050; Q9967

== ENCOUNTER 2020-07-12 09:46 | Outpatient (CLI) | payer OTHER, SELFPAY | END 2020-07-12 09:47 | disposition home or self-care (01) | PROVIDERS: PCP Emergency Medicine Emergency Medical Services; Visit Provider Surgery | DX: T81.89XA Other complications of procedures, not elsewhere classified, initial encounter (principal) | CPT/HCPCS: 11043; G0463 ==

== ENCOUNTER 2020-07-19 13:20 | Outpatient (CLI) | payer OTHER, SELFPAY | END 2020-07-19 13:21 | disposition home or self-care (01) | LOC: WOUND 13:20 | PROVIDERS: PCP Emergency Medicine Emergency Medical Services; Visit Provider Surgery | DX: T81.89XA Other complications of procedures, not elsewhere classified, initial encounter (principal) | CPT/HCPCS: 11043 ==

== ENCOUNTER 2020-07-26 13:36 | Outpatient (CLI) | payer OTHER, SELFPAY | END 2020-07-26 13:37 | disposition home or self-care (01) | LOC: WOUND 13:36 | PROVIDERS: PCP Emergency Medicine Emergency Medical Services; Visit Provider Surgery | DX: T81.89XA Other complications of procedures, not elsewhere classified, initial encounter (principal) | CPT/HCPCS: 11043 ==

== ENCOUNTER 2020-07-31 10:29 | Outpatient (CLI) | payer OTHER, SELFPAY ==
--- NOTE | 2020-07-31 11:00 | USCV_ITS ---
Ethan Bjorn Age: 79 Gender: M : 1940 Exam Date: 07/31/2020 11:28 Ordering Phys: Rey Jones MD Technologist: Renae Rousseau [place] [facility] [place]: H[place]ORY: right calf non healing wound PROCEDURES: Right duplex Venous Insufficiency study of the Deep and Superficial systems was carried out according to normal protocol with the patient in supine positon for deep system and dependent position for the superficial system. FINDINGS: No DVT or superficial thrombus seen in RLE No GSV reflux noted in RLE Reflux seen in right femoral vein Vesseal diameters and reflux time noted above CONCLUSIONS No evidence of DVT in the above-mentioned identifiable veins. Significant venous reflux of greater than 1000 ms was noted in the right femoral vein No significant venous reflux in the superficial veins on the right side Normal venous dimensions. The venous dimensions and the depth of the surface are as mentioned above Dr Jose Jc MD [facility] (Electronically Signed) Final Date: 01 August 2020 09:25 S
== END 2020-07-31 10:30 | disposition home or self-care (01) ==
LOC: US 10:30
PROVIDERS: PCP Emergency Medicine Emergency Medical Services; Visit Provider Surgery
DX: M79.604 Pain in right leg (principal); L53.9 Erythematous condition, unspecified; L97.219 Non-pressure chronic ulcer of right calf with unspecified severity
CPT/HCPCS: 93971

== ENCOUNTER 2020-08-02 14:04 | Outpatient (CLI) | payer OTHER, SELFPAY | END 2020-08-02 14:05 | disposition home or self-care (01) | LOC: WOUND 14:05 | PROVIDERS: PCP Emergency Medicine Emergency Medical Services; Visit Provider Surgery | DX: L97.813 Non-pressure chronic ulcer of other part of right lower leg with necrosis of muscle (principal) | CPT/HCPCS: 11043 ==

== ENCOUNTER 2020-08-09 14:00 | Outpatient (CLI) | payer OTHER, SELFPAY | END 2020-08-09 14:01 | disposition home or self-care (01) | LOC: WOUND 14:01 | PROVIDERS: PCP Emergency Medicine Emergency Medical Services; Visit Provider Surgery | DX: L97.812 Non-pressure chronic ulcer of other part of right lower leg with fat layer exposed (principal) | CPT/HCPCS: 11043 ==

== ENCOUNTER 2020-08-16 09:03 | Outpatient (CLI) | payer OTHER, SELFPAY | END 2020-08-16 09:04 | disposition home or self-care (01) | LOC: WOUND 09:04 | PROVIDERS: PCP Emergency Medicine Emergency Medical Services; Visit Provider Surgery | DX: L97.812 Non-pressure chronic ulcer of other part of right lower leg with fat layer exposed (principal) | CPT/HCPCS: 11042 ==

== ENCOUNTER 2020-08-18 06:00 | Outpatient (RCR) | payer OTHER, SELFPAY | END 2020-09-16 23:59 | disposition home or self-care (01) | LOC: PULRHB 06:00 | PROVIDERS: PCP Emergency Medicine Emergency Medical Services; Visit Provider Internal Medicine Pulmonary Disease | DX: J44.9 Chronic obstructive pulmonary disease, unspecified (principal) | CPT/HCPCS: G0424 ==

== ENCOUNTER 2020-08-23 08:47 | Outpatient (CLI) | payer OTHER, SELFPAY | END 2020-08-23 08:48 | disposition home or self-care (01) | LOC: WOUND 08:48 | PROVIDERS: PCP Emergency Medicine Emergency Medical Services; Visit Provider Nurse Practitioner Family | DX: L97.812 Non-pressure chronic ulcer of other part of right lower leg with fat layer exposed (principal) | CPT/HCPCS: 11042 ==

== ENCOUNTER 2020-08-30 10:19 | Outpatient (CLI) | payer OTHER, SELFPAY | END 2020-08-30 10:20 | disposition home or self-care (01) | LOC: WOUND 10:19 | PROVIDERS: PCP Emergency Medicine Emergency Medical Services; Visit Provider Surgery | DX: L97.812 Non-pressure chronic ulcer of other part of right lower leg with fat layer exposed (principal) | CPT/HCPCS: 11042 ==

== ENCOUNTER 2020-09-06 10:35 | Outpatient (CLI) | payer OTHER, SELFPAY | END 2020-09-06 10:36 | disposition home or self-care (01) | LOC: WOUND 10:36 | PROVIDERS: PCP Emergency Medicine Emergency Medical Services; Visit Provider Surgery | DX: I96 Gangrene, not elsewhere classified (principal); L97.812 Non-pressure chronic ulcer of other part of right lower leg with fat layer exposed; Z87.891 Personal history of nicotine dependence | CPT/HCPCS: 11042 ==

== ENCOUNTER 2020-09-17 06:00 | Outpatient (RCR) | payer OTHER, SELFPAY | END 2020-10-17 23:59 | disposition home or self-care (01) | LOC: PULRHB 06:00 | PROVIDERS: PCP Emergency Medicine Emergency Medical Services; Visit Provider Internal Medicine Pulmonary Disease | DX: J44.9 Chronic obstructive pulmonary disease, unspecified (principal) | CPT/HCPCS: 94618; G0424 ==

== ENCOUNTER 2020-09-20 10:15 | Outpatient (CLI) | payer OTHER, SELFPAY | END 2020-09-20 10:16 | disposition home or self-care (01) | LOC: WOUND 10:16 | PROVIDERS: PCP Emergency Medicine Emergency Medical Services; Visit Provider Surgery | DX: L97.812 Non-pressure chronic ulcer of other part of right lower leg with fat layer exposed (principal) | CPT/HCPCS: 97597 ==

== ENCOUNTER 2020-09-27 10:14 | Outpatient (CLI) | payer OTHER, SELFPAY | END 2020-09-27 10:15 | disposition home or self-care (01) | LOC: WOUND 10:15 | PROVIDERS: PCP Emergency Medicine Emergency Medical Services; Visit Provider Surgery | DX: L97.812 Non-pressure chronic ulcer of other part of right lower leg with fat layer exposed (principal) | CPT/HCPCS: 17250; 99212 ==

== ENCOUNTER → 2021-05-06 08:55 | Outpatient (BNVA) | payer OTHER, SELFPAY | PROVIDERS: PCP Emergency Medicine Emergency Medical Services; Visit Provider Internal Medicine Pulmonary Disease | DX: Z20.822 Contact with and (suspected) exposure to COVID-19 (principal) | CPT/HCPCS: 87635 ==

== ENCOUNTER 2021-05-12 06:48 | Outpatient (CLI) | payer OTHER, SELFPAY ==
--- NOTE | 2021-05-12 12:32 | PFTS_ITS ---
Date of Study:05/12/21 Date of Dictation: MECHANICS: Forced vital capacity (FVC) is reduced. Forced expiratory volume in one second (FEV1) is reduced. FEV1/FVC is reduced. FLOW VOLUME LOOP: Reduced flow at all lung volumes with significant scooping. LUNG VOLUMES: Not measured DIFFUSING CAPACITY FOR CARBON MONOXIDE: Mild reduced. INTERPRETATION: The postbronchodilator spirometry is consistent with moderate airflow obstruction. There is no significant postbronchodilator response. Gas exchange (DLCO) is mildly reduced. MTDD
== END 2021-05-12 06:49 | disposition home or self-care (01) ==
PROVIDERS: PCP Emergency Medicine Emergency Medical Services; Visit Provider Internal Medicine Pulmonary Disease
DX: J44.9 Chronic obstructive pulmonary disease, unspecified (principal)
CPT/HCPCS: 94060; 94618; 94729; J7611

== ENCOUNTER 2022-01-03 17:53 | Emergency (ER) | payer OTHER, MEDICARE, SELFPAY ==
[2022-01-03 18:11] VITALS: BP 181/139; PULSE 92; RESP 18; TEMP 36.8; O2SAT 98; BMI 29.9
--- NOTE | 2022-01-03 18:21 | W.ED.WOUNDLC ---
HPI - Wound/Laceration General: Chief Complaint: Wound/Laceration Stated Complaint: left arm lac Time Seen by Provider: 01/03/22 18:14 Source: patient Mode of arrival: ambulatory Limitations: no limitations History of Present Illness: 81-year-old male who states that he was playing with his dog this morning he scratched him on the left forearm roughly at 9:51 AM. Does have 2 roughly 3 cm lacerations left forearm. He states he is on Xarelto and he has not been able to get the bleeding controlled. Denies any pain at the site unsure what his last tetanus was. Denies any other injuries. Associated symptoms: Denies chills, fever(s), nausea or vomiting Review of Systems Const: Denies: fever(s), chills, body aches or change in appetite Eyes: Denies: blurry vision or eye discomfort ENMT: Denies: throat pain or dental pain Card: Denies: chest pain Resp: Denies: dyspnea GI: Denies: abdominal pain, nausea, vomiting or diarrhea : Denies: dysuria Musc: Denies: neck pain or back pain Skin/Breast: Denies: rash Neuro: Denies: headache(s) Psych: Denies: depression All/Lymph: Denies: easy bruising All/Imm: Denies: urticaria PFSH ED PFSH: Medical History Atrial fibrillation Cellulitis COPD (chronic obstructive pulmonary disease) Gram-positive bacteremia H/O malignant neoplasm of skin Hypertension Leg abscess Surgical History H/O circumcision H/O colonoscopy 5 yrs ago H/O esophagogastroduodenoscopy 1994 Hx of excision of mass (06/12/20) Right leg Family History Other CAD (coronary artery disease) Diabetes Denies family history of Anesthesia complication Bleeding disorder Cancer Social History Smoking and tobacco status: former smoker Quit status (tobacco): has quit using tobacco Year quit tobacco: 2008 Former quit date comment: 1.5-4ppd x 60 years Second hand smoke exposure: No Smoking risk assessment/counseling performed?: No Alcohol intake: former Desire information about alcohol rehabilitation?: No Counseling given: No Desire information about substance/drug rehabilitation?: No Counseling given: No Adopted: No Caregiver/support person: No Lives independently: Yes Household members: spouse Housing: House Marital status: Number of children: 3 service: Yes branch: [employer] Current occupational status: retired Pets and animals: Yes Pets & animals: cat(s) and dog(s) History of recent travel: No Physical Exam Const: COMMON NORMALS: no acute distress, patient oriented x3 and healthy appearing HENMT: COMMON NORMALS: normocephalic and atraumatic HEAD & SCALP: normocephalic and atraumatic Eye: COMMON NORMALS: Equal, round and reactive pupils present and EOMs intact bilaterally PUPIL: Yes Equal, round and reactive pupils present Neck/C-Spine: COMMON NORMALS: full ROM and supple Chest: COMMONS NORMALS: normal inspection of the chest and normal palpation of entire chest wall Resp: COMMON NORMALS: normal respiratory effort, No retractions, No use of accessory muscles and clear to auscultation bilaterally AUSCULTATION: clear to auscultation bilaterally Cardio: COMMON NORMALS: regular rate, regular rhythm and No murmurs present (Cardio) RATE: regular rate RHYTHM: regular rhythm GI: COMMON NORMALS: Normal to inspection, nondistended, normoactive bowel sounds present, Soft to palpation, non-tender and no masses PALPATION: Yes Soft to palpation Extremity: COMMON NORMALS: full ROM NARRATIVE EXTREMITY EXAM: 5 cm laceration to left forearm 1 small superficial less than 1 cm laceration Neuro: COMMON NORMALS: patient oriented x3, moves all extremities and no focal motor deficits Psych: COMMON NORMALS: mental status grossly normal, Normal thought process present and cooperative THOUGHT PROCESS: Normal thought process present Skin: COMMON NORMALS: no rashes or lesions noted and no wounds GENERAL SKIN EXAM: no rashes or lesions noted Procedures Laceration Laceration 1: Site: upper extremity Side (If applicable): left Size (cm): 6 Description: irregular Depth: simple, single layer Local Anesthetic: lidocaine 1% Amount of anesthesia used (mL): 12 Pre-repair: wound explored and irrigated extensively Skin layer closed with: nylon Size (cm): 4-0 Number of sutures: 7 Technique: simple, interrupted Course Vital Signs: Vital signs: Vital Signs Temperature 98.2 F 01/03/22 18:11 Pulse Rate 92 01/03/22 18:11 Respiratory Rate 18 01/03/22 18:11 Blood Pressure 181/139 01/03/22 18:11 Pulse Oximetry 98 01/03/22 18:11 MDM - Wound/Laceration Medical Decision Making Patient presents here with a laceration to his left forearm laceration was sutured placed him on antibiotics did inform and watch for any signs of infection return. It was irrigated very thoroughly to smaller superficial lacerations does not require closing. Bleeding has improved here. Discharge Plan Discharge Patient Disposition: Home Clinical Impression: Laceration Condition: Stable Prescriptions: New cephalexin 500 mg capsule 500 mg PO TID 7 Days Qty: 21 0RF No Action Spiriva Respimat 2.5 mcg/actuation mist 2 puff inhalation DAILY Qty: 4 3RF albuterol sulfate 90 mcg/actuation HFA aerosol inhaler 2 puff INHALATION Q4H PRN (Reason: Shortness Of Breath) 0RF Xarelto 20 mg tablet 20 mg PO QPM 0RF Hold Instructions: Resume on 06/15/20. Rx Instructions: must administer with evening meal pravastatin 40 mg tablet 40 mg PO DAILY 0RF omeprazole 20 mg capsule,delayed release(DR/EC) 20 mg PO DAILY 0RF budesonide-formoterol [Symbicort] 160-4.5 mcg/actuation HFA aerosol inhaler 2 puff INHALATION BID 0RF carvedilol 25 mg tablet 25 mg PO BID 0RF Rx Instructions: PT STATES HE TAKES 12.5MG BID-RX FILLED ON 05/16/2020 FOR THE 12.5MG BID VA LIST HAS 25MG BID tamsulosin 0.4 mg capsule 0.4 mg PO DAILY 0RF furosemide [Lasix] 20 mg tablet 20 mg PO BID Qty: 10 0RF potassium chloride 10 mEq tablet extended release 10 meq PO DAILY Qty: 5 0RF prednisolone acetate 1 % drops,suspension 2 drp ophthalmic (eye) BID 0RF ipratropium-albuterol 0.5 mg-3 mg(2.5 mg base)/3 mL Solution For Nebulization 3 ml INHALATION QID PRN (Reason: UNKNOWN) 0RF Combivent Respimat 20-100 mcg/actuation Mist 1 puff INHALATION QID PRN (Reason: Shortness Of Breath) 0RF Glucosamine 1 tab PO DAILY 0RF cyclobenzaprine 5 mg tablet 5 mg PO BID PRN (Reason: muscle spasm) Qty: 14 0RF Discharge Orders: Discharge ED (Routine); Ordered 01/03/22 Ordered By: Chloe Messer Referrals: Yuan Odonnell, DO [Primary Care Provider] - Discharge Diet: Advance as tolerated Discharge Activity: Resume usual activity Patient Instructions: Laceration (ED) Activity Restrictions/Additional Instructions: suture removal in 10 days Coding Level of Care Code ED Helper Electrical for Chg Fwd Exam Comprehensive
[2022-01-03] MEDS: tetanus-dipt-pertussis 0.5 mL SDV IM (18:26)
--- NOTE | 2022-01-03 18:54 | PC.NURSE ---
Pt laceration bandaged after suture placed; telfa, 4x4 and coban used. Pt educated on wound care, watching for signs of infection and changing of bandage. Bleeding controlled at this time.
== END 2022-01-03 18:56 | disposition home or self-care (01) ==
PROVIDERS: Emergency Provider Emergency Medicine; PCP Emergency Medicine Emergency Medical Services
DX: S51.812A Laceration without foreign body of left forearm, initial encounter (principal); J44.9 Chronic obstructive pulmonary disease, unspecified; I10 Essential (primary) hypertension; Z87.891 Personal history of nicotine dependence; W54.8XXA Other contact with dog, initial encounter; Z23 Encounter for immunization
CPT/HCPCS: 12002; 90471; 90715; 99282

== ENCOUNTER → 2023-10-05 08:55 | Outpatient (BNVA) | payer OTHER, MEDICARE, SELFPAY | PROVIDERS: PCP Emergency Medicine Emergency Medical Services; Visit Provider Orthopaedic Surgery | DX: M25.519 Pain in unspecified shoulder (principal); G89.29 Other chronic pain | CPT/HCPCS: 73030; 99204 ==

== ENCOUNTER 2023-10-27 12:07 | Outpatient (CLI) | payer OTHER, SELFPAY ==
--- NOTE | 2023-10-27 12:12 | MR_ITS ---
WS: [id number] MRI RIGHT SHOULDER HISTORY: SHOULDER PAIN COMPARISON: Radiograph 08/05/2023 TECHNIQUE: Multiplanar sequences of the shoulder joint are submitted. Moderate to severe AC joint arthritis. Hypertrophic bone with small erosions involving the distal cla vicle and acromion. There is a large amount of fluid in subacromial and subdeltoid bursa. Mild subacr omial impingement. Biceps tendon is not identified in the bicipital groove. There is increased fluid within the biceps tendon sheath. No os acromion. Complete tear of the supraspinatus with tendon retracted to the medial humeral head. There is fraying of the residual retracted tendon. Humeral head is high riding nearly abutting the undersurface of th e acromion. Supraspinatus and infraspinatus tendons appear intact. Mild coracohumeral interval narrow ing. Moderate supraspinatus atrophy. Intrasubstance degeneration involving the labrum. The labrum justin ears small but not torn. IMPRESSION: 1. Severe AC joint arthritis. 2. Complete tear of the supraspinatus tendon with retraction to the medial humeral head. 3. Moderate atrophy of the supraspinatus muscle. 4. Biceps tendon not identified in the bicipital groove. There is increased fluid within the tendon sheath.
== END 2023-10-27 12:08 | disposition home or self-care (01) ==
LOC: RAD 12:07
PROVIDERS: PCP Emergency Medicine Emergency Medical Services; Visit Provider Orthopaedic Surgery
DX: M25.511 Pain in right shoulder (principal); M13.811 Other specified arthritis, right shoulder
CPT/HCPCS: 73221

== ENCOUNTER → 2023-11-10 13:02 | Outpatient (BNVA) | payer OTHER, SELFPAY | PROVIDERS: PCP Emergency Medicine Emergency Medical Services; Referring Provider Orthopaedic Surgery; Visit Provider Specialist | DX: M25.511 Pain in right shoulder (principal); G89.29 Other chronic pain | CPT/HCPCS: 99204 ==

== ENCOUNTER → 2024-01-24 09:33 | Outpatient (BNVA) | payer OTHER, SELFPAY | PROVIDERS: PCP Emergency Medicine Emergency Medical Services; Visit Provider Specialist | DX: M25.511 Pain in right shoulder (principal); G89.29 Other chronic pain | CPT/HCPCS: 99213 ==

== ENCOUNTER 2024-07-18 06:00 | Outpatient (RCR) | payer OTHER, SELFPAY | END 2024-08-17 23:59 | disposition home or self-care (01) | LOC: AST 06:00 | PROVIDERS: Visit Provider Nurse Practitioner Family | DX: R13.10 Dysphagia, unspecified (principal) | CPT/HCPCS: 92526; 92610 ==

== ENCOUNTER → 2024-08-10 11:09 | Outpatient (BNVA) | payer OTHER, SELFPAY | PROVIDERS: Visit Provider Podiatrist Foot & Ankle Surgery | DX: M77.41 Metatarsalgia, right foot (principal); M77.42 Metatarsalgia, left foot; L90.9 Atrophic disorder of skin, unspecified; I73.9 Peripheral vascular disease, unspecified; L60.3 Nail dystrophy | CPT/HCPCS: 99203 ==

== ENCOUNTER → 2024-11-09 09:00 | Outpatient (BNVA) | payer OTHER, SELFPAY | PROVIDERS: PCP Nurse Practitioner; Visit Provider Podiatrist Foot & Ankle Surgery | DX: M77.41 Metatarsalgia, right foot (principal); M77.42 Metatarsalgia, left foot; L90.9 Atrophic disorder of skin, unspecified; I73.9 Peripheral vascular disease, unspecified; L60.3 Nail dystrophy | CPT/HCPCS: 99213 ==

== ENCOUNTER 2024-12-06 18:13 | Emergency (ER) | payer OTHER, SELFPAY ==
[2024-12-06 18:14] VITALS: BP 150/88; PULSE 113; RESP 16; TEMP 36.5; O2SAT 93; BMI 30.6
--- NOTE | 2024-12-06 18:18 | XRR_ITS ---
PROCEDURE INFORMATION: Exam: XR Chest Exam date and time: 12/06/2024 6:34 PM Age: 83 years old Clinical indication: Cough TECHNIQUE: Imaging protocol: Radiologic exam of the chest. Views: 1 view. COMPARISON: CR XR chest 1V portable [id number] 07/04/2020 4:52 AM FINDINGS: Lungs: Unremarkable. No consolidation. Pleural spaces: Unremarkable. No pleural effusion. No pneumothorax. Heart/Mediastinum: Unremarkable. No cardiomegaly. Bones/joints: Unremarkable. XR/XR chest 1V portable [id number] IMPRESSION: No acute findings.
--- NOTE | 2024-12-06 18:19 | W.ED.WEAKNES ---
HPI - Weakness General: Chief complaint: Weakness Stated complaint: weakness, Flu like Time Seen by Provider: 12/06/24 18:17 History of Present Illness: Patient presents to the ER by EMS with complaints of weakness and flulike symptoms. Patient says he has been going on for 2 weeks and not getting better. Patient does wear 2 L of oxygen at home at all times. Patient is in no acute distress and nontoxic in appearance patient has a nonproductive cough denies any fever chills patient has no other complaints. Review of Systems General: Reports: 10 or more systems reviewed and unremarkable except in HPI and below PFSH ED PFSH: Medical History Gram-positive bacteremia Leg abscess Cellulitis H/O malignant neoplasm of skin COPD (chronic obstructive pulmonary disease) Atrial fibrillation Hypertension Surgical History Hx of excision of mass (06/12/20) Right leg H/O esophagogastroduodenoscopy 1993 H/O colonoscopy 5 yrs ago H/O circumcision Family History Other CAD (coronary artery disease) Diabetes Denies family history of Anesthesia complication Bleeding disorder Cancer Social History Smoking and tobacco/nicotine status: never used tobacco/nicotine Quit status (tobacco/nicotine): has quit using Year quit tobacco: 2008 Former quit date comment: 1.5-4ppd x 60 years Second hand smoke exposure: No Alcohol intake: former Substance/Drug Use: former Adopted: No Caregiver/support person: No Lives independently: Yes Household members: spouse Housing: House Marital status: Number of children: 3 service: Yes branch: [employer] Current occupational status: retired Pets and animals: Yes Pets & animals: cat(s) and dog(s) Physical Exam Const: COMMON NORMALS: no acute distress, average body habitus, patient oriented x3, no limitations, healthy appearing, alert and well nourished HENMT: COMMON NORMALS: normocephalic, atraumatic, hearing grossly normal bilaterally, external ears normal, Normal external nose present and moist oral mucous membranes HEAD & SCALP: normocephalic and atraumatic NOSE: Normal external nose present EXTERNAL EAR: Yes external ears normal Neck/C-Spine: COMMON NORMALS: no JVD Chest: COMMONS NORMALS: normal inspection of the chest and normal palpation of entire chest wall Resp: COMMON NORMALS: normal respiratory effort, No retractions and No use of accessory muscles; negative for clear to auscultation bilaterally (Occasional diffuse wheeze) AUSCULTATION: not clear to auscultation bilaterally (Occasional diffuse wheeze) Cardio: COMMON NORMALS: no JVD, S1 normal heart sound present, S2 normal heart sound present, No gallops present (Cardio), No murmurs present (Cardio) and No rub (Cardio); negative for regular rate (Mildly tachycardic) RATE: abnormal rate (Mildly tachycardic) HEART SOUNDS: S1 normal heart sound present and S2 normal heart sound present GI: COMMON NORMALS: Normal to inspection, nondistended, normoactive bowel sounds present, Soft to palpation, non-tender, No hepatosplenomegaly present and no masses PALPATION: Yes Soft to palpation and Yes No hepatosplenomegaly present Extremity: NARRATIVE EXTREMITY EXAM: 1+ pitting bilateral pretibial edema Neuro: COMMON NORMALS: patient oriented x3 SENSORIUM/ORIENTATION: Yes alert Course Vital Signs: Vital signs: Vital Signs Temperature 97.7 F 12/06/24 18:14 Pulse Rate 93 12/06/24 19:42 Respiratory Rate 16 12/06/24 18:14 Blood Pressure 150/88 12/06/24 19:42 Pulse Oximetry 95 12/06/24 19:42 Oxygen Delivery Me thod Nasal Cannula 12/06/24 18:14 Oxygen Flow Rate 2 12/06/24 18:14 MDM - Weakness Medical Decision Making Chest x-ray showed no acute findings, lab work was reviewed, white count 9.4, BUN/creatinine 15 and 1.3, lactic acid 1.1, troponin 16 BNP 919, influenza A positive. Patient be discharged home. Medical Records I reviewed the patient's medical records. Lab Data I reviewed the patient's lab results. 12/06/24 18:56 12/06/24 18:56 Radiology Impressions Chest X-Ray 12/06/24 18:18 IMPRESSION: No acute findings. Laboratory Results WBC 9.44 10^3/uL (3.29-11.43) 12/06/24 18:56 RBC 4.31 10^6/uL (3.85-5.65) 12/06/24 18:56 Hgb 13.00 g/dL (11.27-16.99) 12/06/24 18:56 Hct 39.1 % (37-53) 12/06/24 18:56 MCV 90.7 fl (82-101) 12/06/24 18:56 MCH 30.2 pg (27-33) 12/06/24 18:56 MCHC 33.2 g/dL (30-55) 12/06/24 18:56 RDW 14.7 % (12.1-15.1) 12/06/24 18:56 Plt Count 98 10^3/cmm (157-399) L 12/06/24 18:56 MPV 11.4 fL (7.4-10.4) H 12/06/24 18:56 Neut % (Auto) 60.3 % 12/06/24 18:56 Lymph % (Auto) 26.0 % 12/06/24 18:56 [place] % (Auto) 10.5 % 12/06/24 18:56 Eos % (Auto) 1.8 % 12/06/24 18:56 Baso % (Auto) 0.2 % 12/06/24 18:56 Neut # (Auto) 5.70 10^3/uL (1.8-7.7) 12/06/24 18:56 Lymph # (Auto) 2.5 10^3/uL (0.8-4.8) 12/06/24 18:56 [place] # (Auto) 1.0 10^3/uL (0.2-0.9) H 12/06/24 18:56 Eos # (Auto) 0.2 10^3/uL (0.0-0.8) 12/06/24 18:56 Baso # (Auto) 0.0 10^3/uL (0.0-0.1) 12/06/24 18:56 Nucleated RBC % (auto) 0 % 12/06/24 18:56 Nucleated RBCs # 0.0 /100WBC 12/06/24 18:56 Sodium 136 mmol/L (136-145) 12/06/24 18:56 Potassium 4.4 mmol/L (3.5-5.1) 12/06/24 18:56 Chloride 100 mmol/L (98-107) 12/06/24 18:56 Carbon Dioxide 22 mmol/L (22-29) 12/06/24 18:56 Anion Gap 18.4 (5-19) 12/06/24 18:56 BUN 15 mg/dL (8-23) 12/06/24 18:56 Creatinine 1.3 mg/dL (0.7-1.2) H 12/06/24 18:56 GFR Calculation Not Reportable 12/06/24 18:56 Glucose 106 mg/dL (65-115) 12/06/24 18:56 Calculated Osmolality 283 mOsm/kg (285-295) L 12/06/24 18:56 Lactic Acid 1.1 mmol/L (0.5-2.2) 12/06/24 18:56 Calcium 8.9 mg/dL (8.5-10.5) 12/06/24 18:56 Total Bilirubin 1.9 mg/dL (0.15-1.2) H 12/06/24 18:56 AST 15 U/L (0-40) 12/06/24 18:56 ALT 9 U/L (0-41) 12/06/24 18:56 Alkaline Phosphatase 63 U/L (40-130) 12/06/24 18:56 Troponin T Baseline 16 ng/L (0-15) H 12/06/24 18:56 NT-Pro-B Natriuret Pep 919 pg/mL (0-450) H 12/06/24 18:56 Total Protein 6.2 g/dL (6.6-8.7) L 12/06/24 18:56 Albumin 3.9 g/dL (3.5-5.2) 12/06/24 18:56 Globulin 2.3 g/dL (1.3-4.6) 12/06/24 18:56 Procalcitonin 0.10 ng/mL (0-0.5) 12/06/24 18:56 Urine Color Dark yellow (Yellow) A 12/06/24 20:11 Urine Appearance Cloudy (CLEAR) A 12/06/24 20:11 Urine pH 5.0 (5-7) 12/06/24 20:11 Ur Specific [place] 1.021 (1.005-1.030) 12/06/24 20:11 Urine Protein 1+ (Negative) A 12/06/24 20:11 Urine Glucose (UA) Negative (Normal) 12/06/24 20:11 Urine Ketones Trace (Negative) 12/06/24 20:11 Urine Blood 1+ (Negative) A 12/06/24 20:11 Urine Nitrate Negative (Negative) 12/06/24 20:11 Urine Bilirubin 1+ (Negative) H 12/06/24 20:11 Urine Urobilinogen 1.0 mg/dL (Negative) 12/06/24 20:11 Ur Leukocyte Esterase Trace (Negative) A 12/06/24 20:11 Urine RBC 10-15 /hpf (0-2) H 12/06/24 20:11 Urine WBC 5-10 /hpf (0-5) H 12/06/24 20:11 Ur Squamous Epith Cells 5-10 /hpf (0-5) H 12/06/24 20:11 Amorphous Sediment Not Reportable 12/06/24 20:11 Urine Bacteria Trace /hpf (NONE) 12/06/24 20:11 Hyaline Casts 0-4 /lpf H 12/06/24 20:11 Urine Mucus 2+ /hpf 12/06/24 20:11 Influenza A (PCR) Positive (Negative) 12/06/24 18:23 Influenza Type B (PCR) Negative (Negative) 12/06/24 18:23 RSV (PCR) Negative (Negative) 12/06/24 18:23 SARS-CoV-2 (PCR) Negative (Negative) 12/06/24 18:23 All radiology interpretation(s) finalized by discharge Discharge Plan Discharge Patient Disposition: Home Clinical Impression: Influenza A Condition: Stable Prescriptions: No Action Spiriva Respimat 2.5 mcg/actuation mist 2 puff inhalation DAILY Qty: 4 3RF albuterol sulfate 90 mcg/actuation HFA aerosol inhaler 2 puff INHALATION Q4H PRN (Reason: Shortness Of Breath) Xarelto 20 mg tablet 20 mg PO QPM Rx Instructions: must administer with evening meal pravastatin 40 mg tablet 40 mg PO DAILY omeprazole 20 mg capsule,delayed release(DR/EC) 20 mg PO DAILY budesonide-formoterol [Symbicort] 160-4.5 mcg/actuation HFA aerosol inhaler 2 puff INHALATION BID carvedilol 25 mg tablet 25 mg PO BID Rx Instructions: PT STATES HE TAKES 12.5MG BID-RX FILLED ON 05/16/2020 FOR THE 12.5MG BID VA LIST HAS 25MG BID tamsulosin 0.4 mg capsule 0.4 mg PO DAILY furosemide [Lasix] 20 mg tablet 20 mg PO BID Qty: 10 0RF potassium chloride 10 mEq tablet extended release 10 meq PO DAILY Qty: 5 0RF prednisolone acetate 1 % drops,suspension 2 drp ophthalmic (eye) BID clotrimazole-betamethasone 1-0.05 % cream 1 applic topical BID 14 Days Qty: 15 0RF (DME) orthopedic shoe with accomodative inserts See Rx Instructions .Route .MEDSUPPLY Qty: 1 0RF Rx Instructions: As directed to the shoe guys ([facility] custom orthotics See Rx Instructions .Route .MEDSUPPLY Qty: 1 0RF Rx Instructions: As directed with metatarsal pad order faxed to shoes guys code (3020) ([facility] Orthopedic shoes See Rx Instructions .Route .MEDSUPPLY Qty: 1 0RF Rx Instructions: As directed ipratropium-albuterol 0.5 mg-3 mg(2.5 mg base)/3 mL Solution For Nebulization 3 ml INHALATION QID PRN (Reason: UNKNOWN) Combivent Respimat 20-100 mcg/actuation Mist 1 puff INHALATION QID PRN (Reason: Shortness Of Breath) Glucosamine 1 tab PO DAILY cyclobenzaprine 5 mg tablet 5 mg PO BID PRN (Reason: muscle spasm) Qty: 14 0RF Discharge Orders: Discharge ED (Routine); Ordered 12/06/24 Ordered By: Dylan Fernandez Referrals: Jacqueline Butcher FNP [Primary Care Provider] - 1 week Patient Instructions: Influenza (DC) Activity Restrictions/Additional Instructions: Activity restrictions/additional instructions: Thank you for choosing [facility] for your healthcare needs today. Please realize that you were seen in the emergency department and that we are providing you with an emergency medical screening exam and this may not be a complete and all exclusive of all testing and/or medical workup we may need to determine your element or severity of your illness. It is very important that you follow-up as instructed with your primary care provider or specialist for the additional evaluation and to discuss your medical treatment plan. You may return to the emergency department should you have concerns or if your condition changes or worsens in any way. Print Language: Macedonian Coding Level of Care Code ED Healthcare Manager for Chg Fwd Related Data Home Medications ?Medication ?Instructions ?Recorded ?Confirmed albuterol sulfate 90 mcg/actuation 2 puff inhalation Q4H PRN 05/30/20 11/09/24 aerosol inhaler Shortness Of Breath budesonide-formoterol HFA 160 2 puff inhalation BID 05/30/20 11/09/24 mcg-4.5 mcg/actuation aerosol inhaler (Symbicort) omeprazole 20 mg capsule,delayed 20 mg PO DAILY 05/30/20 11/09/24 release pravastatin 40 mg tablet 40 mg PO DAILY 05/30/20 11/09/24 rivaroxaban 20 mg tablet (Xarelto) 20 mg PO QPM 05/30/20 11/09/24 carvedilol 25 mg tablet 25 mg PO BID 06/28/20 11/09/24 Glucosamine 1 tab PO DAILY 07/04/20 11/09/24 ipratropium 0.5 mg-albuterol 3 mg 3 ml inhalation QID PRN UNKNOWN 07/04/20 11/09/24 (2.5 mg base)/3 mL nebulization soln ipratropium 20 mcg-albuterol 100 1 puff inhalation QID PRN 07/04/20 11/09/24 mcg/actuation mist for inhalation Shortness Of Breath (Combivent Respimat) tamsulosin 0.4 mg capsule 0.4 mg PO DAILY 02/13/21 11/09/24 prednisolone acetate 1 % eye 2 drp ophthalmic (eye) BID 04/29/21 11/09/24 drops,suspension Previous Rx's ?Medication ?Instructions ?Recorded cyclobenzaprine 5 mg tablet 5 mg PO BID PRN muscle spasm #14 07/08/20 tabs furosemide 20 mg tablet (Lasix) 20 mg PO BID #10 tabs 02/13/21 potassium chloride 10 mEq 10 meq PO DAILY #5 tabs 02/13/21 tablet,extended release tiotropium bromide 2.5 2 puff inhalation DAILY #4 grams 06/10/21 mcg/actuation mist for inhalation (Spiriva Respimat) Orthopedic shoes #1 ea 08/16/24 custom orthotics #1 ea 08/16/24 clotrimazole-betamethasone 1 1 applic topical BID 2 weeks #15 11/09/24 %-0.05 % topical cream grams orthopedic shoe with accomodative #1 ea 11/09/24 inserts Allergies Allergy/AdvReac Type Severity Reaction Status Date / Time No Known Allergies Allergy Verified 11/09/24 09:07
--- NOTE | 2024-12-06 18:27 | ECG_ITS ---
[facility] Test Date: 2024-12-06 Pat Name: Bjorn Long Department: Room: Gender: Male Ncr Operator: : [id number] Requested By: Dylan Fernandez Order Number: [id number] Billie MD: Derek Florentino M.D. Measurements Intervals [place] Rate: 90 P: 0 TX: 0 QRS: 74 QRSD: 110 T: 54 QT: 346 QTc: 424 Interpretive Statements ATRIAL FIBRILLATION Compared to ECG 06/10/2020 13:22:54 Intraventricular conduction delay no longer present Electronically Signed On 12-07-2024 17:52:07 [employer] BLIND[employer]ITCH by Derek Florentino M.D. [email or web address]
[2024-12-06 19:02] LABS: Influenza A POSITIVE (Negative); Influenza B NEGATIVE (Negative); Respiratory Syncytial Virus Ce NEGATIVE (Negative); SARS-CoV-2 PCR NEGATIVE (Negative)
[2024-12-06 19:27] LABS: Basophils % 0.2 %; Eosinophils # 0.2 10^3/uL (0.0-0.8); Eosinophils % 1.8 %; Hematocrit 39.1 % (37-53); Lymphocytes # 2.5 10^3/uL (0.8-4.8); Mean Corpuscular HGB Conc 33.2 g/dL (30-55); Mean Corpuscular Hemoglobin 30.2 pg (27-33); Mean Corpuscular Volume 90.7 fl (82-101); Mean Platelet Volume 11.4 fL (7.4-10.4); Monocytes % 10.5 %; Neutrophils % 60.3 %; Nucleated Red Blood Cells % 0 %; Platelet Count 98 10^3/cmm (157-399); Red Blood Count 4.31 10^6/uL (3.85-5.65); Red Cell Distribution Width 14.7 % (12.1-15.1); White Blood Count 9.44 10^3/uL (3.29-11.43)
[2024-12-06 19:42] VITALS: BP 150/88; PULSE 93; O2SAT 95
[2024-12-06 19:47] LABS: Lactic Sepsis W/Reflex 1.1 mmol/L (0.5-2.2)
[2024-12-06 19:50] LABS: Troponin(5th) Baseline 16 ng/L (0-15)
[2024-12-06 19:57] LABS: NT Pro B Type Natriuretic Pept 919 pg/mL (0-450)
[2024-12-06 20:09] LABS: Alanine Aminotransferase 9 U/L (0-41); Albumin Level 3.9 g/dL (3.5-5.2); Alkaline Phosphatase 63 U/L (40-130); Anion Gap 18.4 (5-19); Aspartate Amino Transferase 15 U/L (0-40); Blood Urea Nitrogen 15 mg/dL (8-23); Calcium 8.9 mg/dL (8.5-10.5); Carbon Dioxide 22 mmol/L (22-29); Chloride 100 mmol/L (98-107); Creatinine Clr Calc Pharmacy 57.9451; Globulin 2.3 g/dL (1.3-4.6); Glucose 106 mg/dL (65-115); Osmolality Calculated 283 mOsm/kg (285-295); Potassium 4.4 mmol/L (3.5-5.1); Sodium 136 mmol/L (136-145); Total Bilirubin 1.9 mg/dL (0.15-1.2); Total Protein 6.2 g/dL (6.6-8.7)
[2024-12-06 20:18] LABS: Bilirubin Urine 1+ (Negative); Blood Urine 1+ (Negative); Glucose Urine UA Negative (Normal); Ketones Urine Trace (Negative); Leukocyte Esterase Urine Trace (Negative); Nitrate Urine Negative (Negative); Protein Urine 1+ (Negative); Specific Gravity, Urine 1.021 (1.005-1.030); Urine Appearance Cloudy (CLEAR); Urine Color Dark Yellow (Yellow)
[2024-12-06 20:34] LABS: Add Urine Microscopic? YES; Bacteria Urine TRACE /hpf; Hyaline Casts Urine 0-4 /lpf; UA Manual Slide Review YES
[2024-12-06 20:35] LABS: Add Urine Culture? Yes; Mucus Urine 2+ /hpf
== END 2024-12-06 21:11 | disposition home or self-care (01) ==
PROVIDERS: Emergency Provider Emergency Medicine; PCP Nurse Practitioner
DX: J10.1 Influenza due to other identified influenza virus with other respiratory manifestations (principal); Z11.52 Encounter for screening for COVID-19; Z87.891 Personal history of nicotine dependence; J44.9 Chronic obstructive pulmonary disease, unspecified; I10 Essential (primary) hypertension; Z85.828 Personal history of other malignant neoplasm of skin
CPT/HCPCS: 36415; 71045; 80053; 81001; 83605; 83880; 84145; 84484; 85025; 87086; 87637; 93005; 99285